=== PATIENT | female | born 1950 | race African-American/Black ===

== ENCOUNTER 2017-07-22 09:08 | Inpatient (IN) ==
[2017-07-22 10:23] LABS: Basophils # 0.1 10*3/uL (0.0-0.2); Basophils % 0.3 % (0.0-0.8); Eosinophils # 0.1 10*3/uL (0.0-0.87); Eosinophils % 0.6 % (0.00-10.9); Hematocrit 36.6 VOL% (35.7-47.0); Hemoglobin 12.5 GM/DL (12.0-16.0); Immature Granulocytes % 0.7 %; Lymphocytes # 2.3 10*3/uL (1.4-4.0); Lymphocytes % 15.8 % (21.3-54.2); Mean Corpuscular HGB Conc 34.2 GM/DL (32-36); Mean Corpuscular Hemoglobin 31 PG (27-34); Mean Corpuscular Volume 89.3 FL (87-102); Mean Platelet Volume 10.3 FL (9.6-12.0); Monocytes # 1.1 10*3/uL (0.11-0.8); Monocytes % 7.2 % (1.7-12.7); Neutrophils # 10.9 10*3/uL (1.4-7.4); Neutrophils % 75.4 % (38.7-73.9); Platelet Count 307 T/CUMM (130-400); Red Cell Distribution Width 12.4 % (9.3-17.3); White Blood Count 14.5 T/CUMM (4-12)
[2017-07-22 10:28] LABS: Apearance,Urine CLEAR (Clear); Bacteria,Urine Occasional /HPF (Few); Bilirubin,Urine Negative (Negative); Blood, Urine Negative (Negative); Glucose,Urine (UA) Negative (Negative); Ketones,Urine 5 mg/dL (Negative); Mucus,Urine Occasional /LPF (Occasional); Nitrite,Urine Negative (Negative); Protein,Urine 30 MG/DL; RBC,Urine 3 /HPF (0-4); Squamous Epithelial Cell,Urine Occasional /HPF (0-10); Urine Color Amber (Yellow); Urine Specific Gravity 1.021 (1.001-1.035); WBC,Urine 2 /HPF (0-6)
[2017-07-22 10:48] LABS: Albumin 3.5 G/DL (3.4-5.0); Bilirubin,Total 0.7 MG/DL (0.2-1.0); Calcium 9.4 MG/DL (8.5-10.1); Magnesium 2.3 MG/DL (1.8-2.4); Osmolality,Calculated 275.5 MOS/KG (273-304); Potassium 3.7 MMOL/L (3.5-5.1); Total Protein 7.7 G/DL (6.4-8.3)
--- NOTE | 2017-07-22 11:03 | CT Report ---
History left lower quadrant abdominal pain 100 cc Omnipaque 350 utilized. No focal defects seen in the liver, spleen, pancreas, adrenals, or right kidney. Tiny a 5 mm of fat density nodularity in the left kidney noted Atherosclerotic changes in the abdominal aorta. 5 mm periaortic nodes present. No larger than 1 cm nodes present. Bowel is unopacified. Pelvis: There are diverticuli in sigmoid colon with the inflammatory changes surrounding the sigmoid colon. The there are 2 loculated fluid collections adjacent to the sigmoid colon one of which is more superior measuring 3.3 cm with an air-fluid level and well-defined wall. The second is more inferiorly with a mildly more irregular, less well-defined wall measuring up to 3 x 4 cm containing fluid and tiny amount of gas. There are degenerative changes and mild spondylolisthesis in the lumbar spine Impression: 1. Sigmoid diverticulitis with 2 adjacent abscess collections described above 2. Tiny left renal angiomyolipoma The CT exam was performed using one or more of the following dose reduction techniques: Automated exposure control, adjustment of the mA and/or kV according to patient size, or use of iterative reconstruction technique. PROCEDURE INTERPRETED AT [facility] DEPARTMENT OF RADIOLOGY Final Report Signed by: Dr. Jeanie Morales
--- NOTE | 2017-07-22 11:34 | Emergency Department Note ---
Kayden Izquierdo Manpreet, am scribing for, and in the presence of, Scott Malik MD 10:07. Helena Izquierdo Phillip K, MD, personally performed the services described in this documentation, ascribed by Willi Monique in my presence, and it is both accurate and complete [id number] . Arrival - Arrival Chief Complaint: Abdominal / Flank Pain Stated Complaint: abd pain,urinary pain ED Nursing Triage Note: lower abd pain and pain with uriation onset x 1 week ago - pt states that she is taking keflex that was started on 07/16/17 Mode of Arrival: Ambulatory Limitations: No Limitations Source: Patient Time Seen by Provider: 07/22/17 09:53 - History of Present Illness HPI Narrative: Pt is a 66 y/o female who presents to the ED with CC of lower Abd pain and dysuria that began 07/14/17. Pt went to her PCP, Dr. Baljinder Donovan, who treated her for a UTI. Pt was Rx Keflex on July 15 which she has been taking. Pt states the Abd pain is intermittent and reports of increased frequency. Pt states the pain worsens at the start and end of her urination. Pt c/o nausea and fever last night with a temperature of 100.6 F, but denies vomiting. Pt's temperature during triage was 97.5 F. Pt has a PSHx of appendectomy and C- section, but still has her gallbladder. Pt's last colonoscopy was 20 years ago. No other pains/complaints reported to the ED. Onset (ago): hour(s) Consistency: constant Severity: moderate Date of Last Menstrual Period: hyster Allergies/Adverse Reactions: Allergies Allergy/AdvReac Type Severity Reaction Status Date / Time ciprofloxacin [From Cipro] AdvReac Hallucinati Verified 07/22/17 09:23 ng codeine AdvReac Hallucinati Verified 07/22/17 09:23 ng sulfamethoxazole AdvReac Hallucinati Verified 07/22/17 09:23 [From Bactrim] ng trimethoprim [From Bactrim] AdvReac Hallucinati Verified 07/22/17 09:23 ng Review of System - Review of System 12 point system: reviewed and no additional remarkable complaints except as stated - Review of System Constitutional: Present: chills, fever (Last night with Temperature of 100.6). Absent: diaphoresis Respiratory: Absent: cough, respiratory distress, wheezing Cardiovascular: Absent: chest pain, dyspnea on exertion Gastrointestinal: Present: abdominal pain, nausea. Absent: vomiting, diarrhea Genitourinary female: Present: dysuria, frequency Musculoskeletal: Present: back pain Neurological: Absent: headache, weakness, numbness, paresthesias Medical,Surgical,& Family Hx - Medical History Cardio: History of: Hypertension Endocrine: History of: Dyslipidemia - Social History Smoking Status: Never smoker Frequency of Alcohol Use: None Type of Drug Use: None Exam Vital Signs: Vital Signs Temperature 97.5 F L 07/22/17 09:23 Pulse Rate 95 H 07/22/17 09:23 Respiratory Rate 20 07/22/17 09:23 Blood Pressure 146/65 07/22/17 09:23 O2 Sat by Pulse Oximetry 98 07/22/17 09:23 - General General appearance: alert, in no apparent distress - Head Head exam: Present: atraumatic, normocephalic, normal inspection - Eye Eye exam: Present: normal appearance, PERRL, EOMI - ENT ENT exam: Present: normal exam, normal oropharynx, mucous membranes moist, TM's normal bilaterally - Neck Neck exam: Present: normal inspection, full ROM, trachea midline. Absent: tenderness - Chest Chest inspection: Present: normal inspection, symmetric chest wall rise. Absent : tenderness - Respiratory Respiratory exam: Present: normal lung sounds bilaterally. Absent: accessory muscle use, respiratory distress - Cardiovascular Cardiovascular exam: Present: regular rate, normal rhythm, normal heart sounds - Abdominal Exam Abdominal exam: Present: soft, tenderness (LLQ and Suprapubic tenderness), normal bowel sounds. Absent: distention, guarding, rebound, rigidity - Extremities Exam Extremities exam: Present: normal inspection, full ROM. Absent: tenderness - Back Exam Back exam: Present: normal inspection, full ROM. Absent: tenderness - Neurological Exam Neurological exam: Present: alert, oriented X3, CN II-XII intact, reflexes normal - Psychiatric Psychiatric exam: Present: normal affect, normal mood - Skin Skin exam: Present: warm, dry, intact, normal color. Absent: pallor Results - Labs CBC & BMP: 07/22/17 10:06 07/22/17 10:06 Lab Results: I have reviewed the patients labs Labs: Laboratory Tests 07/22/17 10:16 POC Creatinine 0.74 POC Estimated GFR (eGFR) > 60 Laboratory Tests 07/22/17 07/22/17 10:01 10:06 WBC 14.5 H RBC 4.10 Hgb 12.5 Hct 36.6 MCV 89.3 MCH 31 MCHC 34.2 RDW 12.4 Plt Count 307 MPV 10.3 Neut % (Auto) 75.4 H Lymph % (Auto) 15.8 L Mathews % (Auto) 7.2 Eos % (Auto) 0.6 Baso % (Auto) 0.3 Neut # (Auto) 10.9 H Lymph # (Auto) 2.3 Mathews # (Auto) 1.1 H Eos # (Auto) 0.1 Baso # (Auto) 0.1 Immature Gran % 0.7 Nucleated RBC % 0.0 Immature Gran # 0.10 Nucleated RBCs # 0.00 Immature Plt Fraction 0.0 Urine Color Elsi Urine Appearance Clear Urine pH 5.0 Ur Specific [place] 1.021 Urine Protein 30 Urine Glucose (UA) Negative Urine Ketones 5 Urine Blood Negative Urine Nitrate Negative Urine Bilirubin Negative Urine Urobilinogen 4.0 H Urine Leukocytes Negative Urine RBC 3 Urine WBC 2 Ur Squamous Epith Cells Occasional Urine Bacteria Occasional Urine Mucus Occasional Ur Culture Indicated? Not indicated Laboratory Tests 07/22/17 10:06 Sodium 139 Potassium 3.7 Chloride 102 Carbon Dioxide 28 Anion Gap 12.7 BUN 9 Creatinine 0.80 GFR Calculation 87 BUN/Creatinine Ratio 11.00 Glucose 107 H Calculated Osmolality 275.5 Calcium 9.4 Magnesium 2.3 Total Bilirubin 0.70 AST 23 ALT 18 Alkaline Phosphatase 99 Total Protein 7.7 Albumin 3.5 Globulin 4.2 H Albumin/Globulin Ratio 0.8 L Lipase 133.0 - Diagnostic Findings Procedure: CT Abdomen and Pelvis: report reviewed by me ("CT Abd/Pel w/ Con: 1. Sigmoid diverticulitis with 2 adjacent abscess collections described above. 2. Tiny left renal agniomyolipoma.") Disposition Clinical Impression: Diverticulitis, Diverticular disease of intestine with perforation and abscess Case discussed with: patient Disposition: Still a Patient Condition: Guarded Additional Instructions: Admit to the hospitalist and consult GI and surgery.
[2017-07-22] MEDS ORDERED: AMPICILLIN/SULBACTAM 3,000 MG in SODIUM CHLORIDE 0.9% 100 ML IV STA (11:36)
[2017-07-22] MEDS ORDERED: metroNIDAZOLE INJ 500 MG in PREMIX 1 EACH IV STA (11:36)
[2017-07-22] MEDS ORDERED: metroNIDAZOLE 500 MG/100 ML PREMIX IV ONE (11:51)
[2017-07-22] MEDS ORDERED: AMPICILLIN/SULBACTAM 3,000 MG VIAL ONE (11:51)
--- NOTE | 2017-07-22 12:44 | Hospitalist History & Physical ---
<Kathrin Michelda - Last Filed: 07/22/17 12:53> Assessment and Plan (1) Diverticulitis Status: Acute Assessment and plan: We will initiate hydration, empiric antibiotics, protein pump inhibitors, and promote bowel rest. We will consult gastroenterology to evaluate. In addition , we will consult surgery to evaluate for possible surgical intervention if warranted. Current Visit: Yes (2) Diverticular disease of intestine with perforation and abscess Status: Acute Assessment and plan: We will initiate hydration, empiric antibiotics, protein pump inhibitors, and promote bowel rest. We will consult gastroenterology to evaluate. In addition , we will consult surgery to evaluate for possible surgical intervention if warranted. Current Visit: Yes (3) Sepsis Status: Acute Assessment and plan: At the time of ED presentation, the patient's respirations were noted at 20, white blood cell count was noted at 14.5. CT abdomen and pelvis was remarkable for sigmoid diverticulitis with 2 adjacent abscess collections. The aforementioned findings solidifies the subsequent sepsis diagnosis. We will initiate the sepsis bundle per protocol. Blood cultures were not obtained at the time of ED presentation. We will obtain blood cultures and sent for analysis. Current Visit: Yes History of Present Illness Chief complaint: abdominal pain History of present illness: This is a 66-year-old female that presented to the ED at [facility] this morning for the evaluation of abdominal pain. Patient has a medical history significant for hypertension, hyperlipidemia, arthritis, and asthma. Patient has a surgical history significant for appendectomy, section, and hysterectomy. The patient reported the onset of symptoms 2 weeks prior to presentation. She initially attempted to manage the symptoms at home however her symptoms became severe. She presented to her primary care physician Dr. Baljinder Ruvalcaba's office on July 15, 2017 where she was diagnosed with a urinary tract infection and prescribed Keflex. The patient reported intermittent abdominal pain initially that she attributed to her urinary tract infection. The symptoms subsided briefly however, the patient started experiencing intermittent abdominal pain. The patient reported that she started to experience severe pain at the initiation and in of urination. The patient reported that she was febrile on last night with a temperature reported at 100.6 however denies vomiting. In addition, she reported that her abdomen became extremely warm on last night which prompted her to take her temperature. Her symptoms became very severe on this morning prompting her to present to the ED for further evaluation. The patient was assessed at the time of ED presentation. The patient was noted to be febrile with a temperature of 97.5. Labs were obtained which were remarkable for white blood cell count of 14.5, glucose 107, and globulin 4.2. Urinalysis was remarkable for urine urobilinogen 4.0, urine WBC 2, and occasional squamous epithelial cells bacteria and mucus was noted. CT abdomen and pelvis with contrast was significant for sigmoid diverticulitis with 2 adjacent abscess collections and the presence of a left renal angioma myolipoma. After brief discussion with both Dr. Malik and Dr. Blackwood, the patient will be admitted to the hospitalist group for continuation of care. A gastroenterology and surgery consultation has been requested to evaluate and assist during the clinical encounter. Home medications have been reviewed and reconciled. CODE STATUS discussed; patient is a FULL CODE. Upon review of the patient's medical record, the patient meets the sepsis criteria. At the time of ED presentation, white blood cell count was noted at 14.5, respirations were noted at 20, and CT abdomen and pelvis was significant for sigmoid diverticulitis with the presence of 2 adjacent abscesses. We will initiate the sepsis bundle per protocol. Home Medications Medication Instructions Recorded Confirmed Type Methocarbamol Tab [Robaxin Tab] 500 mg PO TID PRN 07/22/17 07/22/17 History [place]-3 Fatty Acids [Fish Oil 1,000 mg PO TID 07/22/17 07/22/17 History Concentrate] hydroCHLOROthiazide 12.5 mg PO DAILY 07/22/17 07/22/17 History [Hydrochlorothiazide] Allergies Allergy/AdvReac Type Severity Reaction Status Date / Time ciprofloxacin [From Cipro] AdvReac Hallucinati Verified 07/22/17 09:23 ng codeine AdvReac Hallucinati Verified 07/22/17 09:23 ng sulfamethoxazole AdvReac Hallucinati Verified 07/22/17 09:23 [From Bactrim] ng trimethoprim [From Bactrim] AdvReac Hallucinati Verified 07/22/17 09:23 ng Medical,Surgical,& Family Hx - Medical History Cardio: History of: Hypertension Endocrine: History of: Dyslipidemia - Surgical History Abdominal Surgeries: Surgical HX of: Appendectomy Reproductive Surgeries: Surgical HX of;: Section, Hysterectomy - Family History Family History: Reports;: Family Diabetes, Family Heart Disease, Family Hypertension, Family Stroke - Social History Smoking Status: Never smoker Have you smoked in the last 12 months: No Frequency of Alcohol Use: None Type of Drug Use: None Marital Status: Single Lives With:: Alone Functional capacity: independent ambulation 12 point system: reviewed and no additional remarkable complaints except as stated Exam - Constitutional Vitals: Period Temp Pulse Resp BP Sys/Gunderson Pulse Ox Last 24 Hr 97.5 F-97.5 F 82-95 18-20 145-173/65-89 98-100 General appearance: normal weight, no acute distress - Head Head exam: Present: normal inspection, normocephalic - Eye Eye exam: Present: EOMI, conjunctival injection Pupils: Present: HAROON, normal accommodation - ENT ENT exam: Present: normal exam, normal external ear exam, normal oropharynx - Neck Neck exam: Present: normal inspection. Absent: lymphadenopathy, meningismus, tenderness, thyromegaly - Respiratory Respiratory exam: Present: clear to auscultation bilaterally. Absent: rales, rhonchi, stridor, wheezes - Cardiovascular Cardiovascular exam: Present: regular rate and rhythm. Absent: carotid bruit, diastolic murmur, gallop, JVD - GI/Abdominal GI/Abdominal exam: Present: normal bowel sounds, tenderness (Upon deep palpation ; left lower quadrant suprapubic tenderness) - Extremities Exam Extremities exam: Present: normal inspection, normal capillary refill, full ROM. Absent: edema - Back Exam Back exam: Present: normal inspection - Neurological Exam Neurological exam: Present: alert, oriented X3, CN II-XII intact - Psychiatric Psychiatric exam: Present: normal affect, normal mood - Skin Skin exam: Present: normal color, warm, dry Results - Labs CBC & BMP: 07/22/17 10:06 07/22/17 10:06 Lab Results: I have reviewed the past 24 hour labs Sepsis - Sepsis Classification of Sepsis: Sepsis Possible / Suspected infection from: Diverticular abscess - Physical Exam Physical Exam: At the time of ED presentation, the patient's respirations were noted at 20, white blood cell count was noted at 14.5. CT abdomen and pelvis was remarkable for sigmoid diverticulitis with 2 adjacent abscess collections. The aforementioned findings solidifies the subsequent sepsis diagnosis. We will initiate the sepsis bundle per protocol. - Physical Exam Respiratory exam: clear to auscultation bilaterally Capillary Refill: Less Than 3 Seconds Peripheral pulses: Radial (L): 2+, Radial (R): 2+, Dorsalis Pedis (L) PM: 2+, Dorsalis Pedis (R) PM: 2+, Posterior Tibialis (L): 2+, Posterior Tibialis (R): 2 + Cardiovascular exam: regular rate and rhythm Skin exam: normal color <Shanda Blackwoodnathan - Last Filed: 07/22/17 13:59> History of Present Illness History of present illness: Ms. Arambula is a 66 year old female who presented to the emergency department today with complaints of abdominal pain. Evaluation in the emergency room included a CT scan of the abdomen demonstrating sigmoid diverticulitis with a mansoor-colonic abscess and clinical evaluation compatible with sepsis. She is being admitted to the hospital for management thereof. She has been placed on bowel rest, begun on intravenous normal saline, and begun on intravenous antibiotics. Gastroenterology and general surgery have been consulted. She is presently comfortable with only minimal abdominal discomfort. I have interviewed the patient, examined the patient, and reviewed all of the available laboratory tests and x-ray results. I agree with the assessment and plans of nurse practitioner Anand. Exam - Constitutional Vitals: Period Temp Pulse Resp BP Sys/Gunderson Pulse Ox Last 24 Hr 97.5 F-97.5 F 82-95 18-20 130-173/65-89 98-100 Results - Labs CBC & BMP: 07/22/17 10:06 07/22/17 10:06
[2017-07-22] MEDS ORDERED: hydrALAZINE 20 MG/1 ML VIAL IV PRN (12:49)
[2017-07-22] MEDS ORDERED: ONDANSETRON 4 MG/2 ML VIAL IV PRN (13:06)
[2017-07-22] MEDS: AMPICILLIN/SULBACTAM 3,000 MG in SODIUM CHLORIDE 0.9% 100 ML IV SCH ×2 (13:48→22:48)
[2017-07-22] MEDS: SODIUM CHLORIDE 0.9% 1,000 ML IV SCH (13:48)
[2017-07-22 13:53] LABS: Risk Ratio 3.03; VLDL CHOLESTEROL 16.2 MG/DL
[2017-07-22] MEDS: ALBUTEROL 2.5 MG/3 ML NEB RESP TX SCH ×4 (14:09→23:42)
--- NOTE | 2017-07-22 14:50 | Gastrointestinal Consult Note ---
<Patti Christiansen - Last Filed: 07/22/17 14:44> Assessment and Plan (1) Diverticulitis Status: Acute Assessment and plan: [id number] history of left lower quadrant abdominal pain with fever, with findings on CT of abdomen of rectosigmoid diverticulitis with abscess findings as noted below 2. Leukocytosis. Currently on Flagyl and Unasyn IV. Clear liquid diet. Plan an addendum to follow Dr. Barton. Current Visit: Yes History of Present Illness Chief complaint: Diverticulitis History of present illness: Ms. Arambula is a 66 year old female who was admitted to the hospital today with 3 week history of abdominal pain. Patient is retired nurse. She states that approximately 3 weeks ago she had an onset of left lower quadrant abdominal pain. She states the pain did not seem to be associated with any other known factors. The pain was located in her left lower quadrant primarily and she did have some occasional nausea but no vomiting with this. Patient also states that she has had an intermittent episodes of nocturnal fever of 100.0. She is followed by Dr. Ruvalcaba and saw him in clinic approximately a week ago and was diagnosed with a urinary tract infection and given a prescription for Keflex. Patient states that several days later her abdominal pain did not improve as she had expected. She then came to the emergency room at that time for further evaluation. Upon admission, patient was found to have leukocytosis with WBCs at 14,000. She had a CT of the abdomen with IV contrast which showed sigmoid diverticulitis with 2 adjacent abscess collections with one measuring 2.3 cm with well-defined wall and a second at 3 x 4 cm with a less well-defined wall. Patient states that she has never had diverticulitis in the past. She denies any recent weight loss other than the last few days from the pain. She has had colonoscopy done in the past however states this was several years ago at the endoscopic center by Dr. Steele and states that she does not recall the findings at that time other than being told she had possible adhesions from her C-sections 3, appendectomy and abdominal hysterectomy. She does not recall any changes in her bowel movements as well as denies any melena or hematochezia. Home Medications Medication Instructions Recorded Confirmed Type Methocarbamol Tab [Robaxin Tab] 500 mg PO TID PRN 07/22/17 07/22/17 History [place]-3 Fatty Acids [Fish Oil 1,000 mg PO TID 07/22/17 07/22/17 History Concentrate] hydroCHLOROthiazide 12.5 mg PO DAILY 07/22/17 07/22/17 History [Hydrochlorothiazide] Allergies Allergy/AdvReac Type Severity Reaction Status Date / Time ciprofloxacin [From Cipro] AdvReac Hallucinati Verified 07/22/17 09:23 ng codeine AdvReac Hallucinati Verified 07/22/17 09:23 ng sulfamethoxazole AdvReac Hallucinati Verified 07/22/17 09:23 [From Bactrim] ng trimethoprim [From Bactrim] AdvReac Hallucinati Verified 07/22/17 09:23 ng Medical,Surgical,& Family Hx - Medical History Cardio: History of: Hypertension Endocrine: History of: Dyslipidemia Genitourinary: History of: Kidney Stones - Surgical History Abdominal Surgeries: Surgical HX of: Appendectomy Reproductive Surgeries: Surgical HX of;: Section, Hysterectomy - Family History Family History: Reports;: Family Diabetes, Family Heart Disease, Family Hypertension, Family Stroke Denies;: Family Anesthesia Reaction, Family Cancer, Family Hematology, Family Psychiatric Problems, Additional Family History - Social History Smoking Status: Never smoker Frequency of Alcohol Use: None Type of Drug Use: None 12 point system: reviewed and no additional remarkable complaints except as stated - Constitutional Constitutional: Present: as per HPI - EENT Eyes: Present: as per HPI Ears: Present: as per HPI Nose, mouth and throat: Present: as per HPI - Cardiovascular Cardiovascular: Present: as per HPI - Respiratory Respiratory: Present: as per HPI - Gastrointestinal Gastrointestinal: Present: as per HPI, abdominal pain - Genitourinary Genitourinary: Present: as per HPI - Musculoskeletal Musculoskeletal: Present: as per HPI - Neurological Neurological: Present: as per HPI - Psychiatric Psychiatric: Present: as per HPI - Endocrine Endocrine: Present: as per HPI - Hematologic/Lymphatic Hematologic/Lymphatic: Present: as per HPI Exam - Constitutional Vitals: Period Temp Pulse Resp BP Sys/Gunderson Pulse Ox Last 24 Hr 97.5 F-97.5 F 61-95 18-20 130-173/65-89 98-100 General appearance: normal weight, no acute distress - Head Head exam: Present: normal inspection, normocephalic - Eye Eye exam: Present: other (Lids and conjunctive are unremarkable). Absent: scleral icterus - ENT ENT exam: Present: normal exam, normal oropharynx - Neck Neck exam: Present: normal inspection - Respiratory Respiratory exam: Present: clear to auscultation bilaterally. Absent: rales, rhonchi, wheezes - Cardiovascular Cardiovascular exam: Present: regular rate and rhythm. Absent: diastolic murmur , JVD, systolic murmur - GI/Abdominal GI/Abdominal exam: Present: normal bowel sounds, tenderness (Left lower plug), soft. Absent: ascites, distended, mass, organomegaly - Extremities Exam Extremities exam: Present: normal inspection, full ROM - Back Exam Back exam: Present: normal inspection - Neurological Exam Neurological exam: Present: alert, oriented X3 - Psychiatric Psychiatric exam: Present: normal affect, normal mood - Skin Skin exam: Present: normal color, warm, dry Results - Labs CBC & BMP: 07/22/17 10:06 07/22/17 10:06 Lab Results: I have reviewed the past 24 hour labs <Mauri Barton - Last Filed: 07/22/17 17:15> History of Present Illness History of present illness: Ms. Arambula is a 66 year old female Exam - Constitutional Vitals: Period Temp Pulse Resp BP Sys/Gunderson Pulse Ox Last 24 Hr 97.5 F-98.6 F 61-95 18-20 130-173/65-89 93-100 Results - Labs CBC & BMP: 07/22/17 10:06 07/22/17 10:06
--- NOTE | 2017-07-22 15:20 | General Surgery Consult Note ---
Assessment and Plan (1) Diverticular disease of intestine with perforation and abscess Status: Acute Assessment and plan: Impression: Diverticulitis with abscess Plan: I reviewed the CT images and report. She has evidence of diverticulitis with 2 small abscesses. She is nontoxic. Her abdominal exam is not very impressive. Lab work noted. I discussed options with the patient including conservative treatment with antibiotics alone versus in combination with percutaneous drainage. She does not have an acute abdomen or any indication for exploration at this time. Patient would like to proceed with antibiotics alone and if she does not improve or her condition worsens she would l then consider percutaneous drainage by interventional radiology. I think that is a very reasonable plan. We will continue to follow. Okay for clear liquids today and probably begin advancing diet tomorrow if she continues to do well. Current Visit: Yes History of Present Illness Chief complaint: Abdominal pain History of present illness: Ms. Arambula is a 66 year old female with a one-week history of abdominal pain in the suprapubic and left lower quadrant. She decided to come to the hospital because she was not getting any better. The decision to consult surgery was made upon admission. Patient describes some previous nausea but no vomiting. She has not had any abnormal stools. She denies diarrhea. She has not had any fever. Home Medications Medication Instructions Recorded Confirmed Type Methocarbamol Tab [Robaxin Tab] 500 mg PO TID PRN 07/22/17 07/22/17 History Mart-3 Fatty Acids [Fish Oil 1,000 mg PO TID 07/22/17 07/22/17 History Concentrate] hydroCHLOROthiazide 12.5 mg PO DAILY 07/22/17 07/22/17 History [Hydrochlorothiazide] Allergies Allergy/AdvReac Type Severity Reaction Status Date / Time ciprofloxacin [From Cipro] AdvReac Hallucinati Verified 07/22/17 09:23 ng codeine AdvReac Hallucinati Verified 07/22/17 09:23 ng sulfamethoxazole AdvReac Hallucinati Verified 07/22/17 09:23 [From Bactrim] ng trimethoprim [From Bactrim] AdvReac Hallucinati Verified 07/22/17 09:23 ng Medical,Surgical,& Family Hx - Medical History Cardio: History of: Hypertension Endocrine: History of: Dyslipidemia Genitourinary: History of: Kidney Stones - Surgical History Abdominal Surgeries: Surgical HX of: Appendectomy Reproductive Surgeries: Surgical HX of;: Section, Hysterectomy - Family History Family History: Reports;: Family Diabetes, Family Heart Disease, Family Hypertension, Family Stroke Denies;: Family Anesthesia Reaction, Family Cancer, Family Hematology, Family Psychiatric Problems, Additional Family History - Social History Smoking Status: Never smoker Frequency of Alcohol Use: None Type of Drug Use: None 12 point system: reviewed and no additional remarkable complaints except as stated Exam - Constitutional Vitals: Period Temp Pulse Resp BP Sys/Gunderson Pulse Ox Last 24 Hr 97.5 F-97.5 F 61-95 18-20 130-173/65-89 98-100 General appearance: no acute distress - ENT Mouth exam: Present: normal external inspection - Neck Neck exam: Present: normal inspection - Respiratory Respiratory exam: Present: clear to auscultation bilaterally - Cardiovascular Cardiovascular exam: Present: RRR - GI/Abdominal GI/Abdominal exam: Present: soft (Nondistended, there is very minimal tenderness to palpation appreciated in the suprapubic and left lower quadrant. She does not have any peritoneal signs.) - Extremities Exam Extremities exam: Present: normal inspection - Neurological Exam Neurological exam: Present: alert, oriented X3 Speech: Present: normal - Skin Skin exam: Present: normal color Results - Labs CBC & BMP: 07/22/17 10:06 07/22/17 10:06 Lab Results: I have reviewed the past 24 hour labs
[2017-07-22] MEDS: metroNIDAZOLE INJ 500 MG in PREMIX 1 EACH IV SCH (20:24)
[2017-07-23] MEDS: metroNIDAZOLE INJ 500 MG in PREMIX 1 EACH IV SCH ×4 (02:28→20:20)
[2017-07-23] MEDS: ALBUTEROL 2.5 MG/3 ML NEB RESP TX SCH ×6 (03:59→23:55)
[2017-07-23] MEDS: AMPICILLIN/SULBACTAM 3,000 MG in SODIUM CHLORIDE 0.9% 100 ML IV SCH ×3 (04:59→22:05)
[2017-07-23 05:35] LABS: Basophils % 0.3 % (0.0-0.8); Eosinophils # 0.1 10*3/uL (0.0-0.87); Eosinophils % 0.8 % (0.00-10.9); Hematocrit 29.8 VOL% (35.7-47.0); Hemoglobin 9.9 GM/DL (12.0-16.0); Immature Granulocytes % 0.7 %; Immature Granulocytes Absolute 0.07 #; Lymphocytes # 1.6 10*3/uL (1.4-4.0); Lymphocytes % 15.9 % (21.3-54.2); Mean Corpuscular HGB Conc 33.2 GM/DL (32-36); Mean Corpuscular Hemoglobin 30 PG (27-34); Mean Platelet Volume 10.9 FL (9.6-12.0); Monocytes # 0.9 10*3/uL (0.11-0.8); Monocytes % 8.8 % (1.7-12.7); NRBC # 0.02 10*3/uL; Neutrophils # 7.5 10*3/uL (1.4-7.4); Neutrophils % 73.5 % (38.7-73.9); Platelet Count 266 T/CUMM (130-400); Red Blood Count 3.31 MC/CUMM (3.8-5.5); Red Cell Distribution Width 12.5 % (9.3-17.3); White Blood Count 10.2 T/CUMM (4-12)
[2017-07-23 06:12] LABS: Albumin 2.7 G/DL (3.4-5.0); Calcium 8.5 MG/DL (8.5-10.1); Osmolality,Calculated 280.3 MOS/KG (273-304); Potassium 3.6 MMOL/L (3.5-5.1); Total Protein 6.3 G/DL (6.4-8.3)
[2017-07-23] MEDS: SODIUM CHLORIDE 0.9% 1,000 ML IV SCH (07:15)
--- NOTE | 2017-07-23 09:51 | General Surgery Progress Note ---
Assessment and Plan (1) Diverticular disease of intestine with perforation and abscess Status: Acute Assessment and plan: 07/23/2017: Metronidazole and Unasyn day #2. Patient feels much improved, afebrile, resolved leukocytosis and is tolerating clear liquids. She request to advance slowly we will try full liquids today continue IV antibiotics. Repeat CBC in a.m. if patient continues to improve on IV antibiotics and tolerates diet advanced without difficulty, I we are hopeful she will be able to transition to oral antibiotics by Wednesday. 07/22/2017: "She has evidence of diverticulitis with 2 small abscesses. She is nontoxic. Her abdominal exam is not very impressive. Lab work noted. I discussed options with the patient including conservative treatment with antibiotics alone versus in combination with percutaneous drainage. She does not have an acute abdomen or any indication for exploration at this time. Patient would like to proceed with antibiotics alone and if she does not improve or her condition worsens she would l then consider percutaneous drainage by interventional radiology. I think that is a very reasonable plan. We will continue to follow. Okay for clear liquids today and probably begin advancing diet tomorrow if she continues to do well." Dictated by Dr. Sanchez. Current Visit: Yes Subjective Patient reports: Present: feels better, tolerating liquids well, afebrile Exam - Constitutional Vitals: Period Temp Pulse Resp BP Sys/Gunderson Pulse Ox Last 24 Hr 97.5 F-99.7 F 61-115 18-20 115-173/56-89 93-100 General appearance: no acute distress - Eye Eye exam: Absent: scleral icterus - GI/Abdominal GI/Abdominal exam: Present: normal bowel sounds, soft, other (decreased abdominal tenderness in suprapubic region and LLQ. ). Absent: firm, guarding - Neurological Exam Neurological exam: Present: alert, oriented X3 Results - Labs CBC & BMP: 07/23/17 04:56 07/23/17 04:56
--- NOTE | 2017-07-23 10:20 | Hospitalist Progress Note ---
Assessment and Plan - Time spent with patient Time spent with patient: Greater than 30 minutes (1) Diverticulitis Status: Acute Current Visit: Yes (2) Diverticular disease of intestine with perforation and abscess Status: Acute Current Visit: Yes (3) Sepsis Status: Acute Assessment and plan: Continue empiric antibiotics with Flagyl and Zosyn. Monitor leukocytosis with CBC Advance diet per surgery recommendations. Change to oral antibiotics once oral intake is reestablished. Continue gentle IV fluid hydration until oral intake is reestablished. If she continues to stay pain free and tolerates oral feeds well, should be able to go in 24-48 hrs DVT prophylaxis - Lovenox. Current Visit: Yes Hospitalist: Subjective Interval history: Patient was admitted on being managed for acute diverticulitis. On day 2 of IV Zosyn and Flagyl with some improvement today. Tolerating clear liquid diet, plan is to transition to full liuid and soft. Leukocytosis has improved. No fever. Pain free at the time of my rounds Appreciate surgery and gastroenterology input. Exam - Constitutional Vitals: Period Temp Pulse Resp BP Sys/Gunderson Pulse Ox Last 24 Hr 97.5 F-99.7 F 61-115 18-20 115-173/56-89 93-100 Exam: General appearance: normal weight, no acute distress - Head Head exam: Present: normal inspection, normocephalic - Eye Eye exam: Present: EOMI, conjunctival injection Pupils: Present: HAROON, normal accommodation - ENT ENT exam: Present: normal exam, normal external ear exam, normal oropharynx - Neck Neck exam: Present: normal inspection. Absent: lymphadenopathy, meningismus, tenderness, thyromegaly - Respiratory Respiratory exam: Present: clear to auscultation bilaterally. Absent: rales, rhonchi, stridor, wheezes - Cardiovascular Cardiovascular exam: Present: regular rate and rhythm. Absent: carotid bruit, diastolic murmur, gallop, JVD - GI/Abdominal GI/Abdominal exam: Present: normal bowel sounds, tenderness (Upon deep palpation ; left lower quadrant suprapubic tenderness) - Extremities Exam Extremities exam: Present: normal inspection, normal capillary refill, full ROM. Absent: edema - Back Exam Back exam: Present: normal inspection - Neurological Exam Neurological exam: Present: alert, oriented X3, CN II-XII intact - Psychiatric Psychiatric exam: Present: normal affect, normal mood - Skin Skin exam: Present: normal color, warm, dry Results - Labs CBC & BMP: 07/23/17 04:56 07/23/17 04:56 Lab Results: I have reviewed the past 24 hour labs
--- NOTE | 2017-07-23 10:24 | Gastrointestinal Progress Note ---
<Patti Christiansen - Last Filed: 07/23/17 10:22> Assessment and Plan (1) Diverticulitis Status: Acute Assessment and plan: 07/23-left lower quadrant pain improved, low-grade fever this morning. WBCs down to 10,000. Tolerating diet present. Continue to monitor as well as continue IV antibiotics. Plan an addendum to follow Dr. Barton. [id number] history of left lower quadrant abdominal pain with fever, with findings on CT of abdomen of rectosigmoid diverticulitis with abscess findings as noted below 2. Leukocytosis. Currently on Flagyl and Unasyn IV. Clear liquid diet. Plan an addendum to follow Dr. Barton. Current Visit: Yes Gastroenterology - PN: Subj Interval history: CC: Diverticulitis Patient is seen, awake and alert with family at bedside. States that she had an uneventful night. She states that her pain is improved today she did have a good bowel movement this morning. She denies any nausea or vomiting. She is ran low-grade fever up to 99.7 this morning however is afebrile this time. WBCs are down to normal limits at 10,000. Abdomen is soft, improved tenderness to left lower quadrant. She is tolerating her diet this is been advanced to full liquids this morning. ROS: Denies shortness breath or chest pain Exam (Progress Note) - Constitutional Vitals: Period Temp Pulse Resp BP Sys/Gunderson Pulse Ox Last 24 Hr 97.5 F-99.7 F 61-115 18-20 115-173/56-89 93-100 General appearance: normal weight, no acute distress - Head Head exam: Present: normal inspection, normocephalic - Eye Eye exam: Present: other (Lids and judgment are unremarkable). Absent: scleral icterus - ENT ENT exam: Present: normal exam, normal oropharynx - Neck Neck exam: Present: normal inspection - Respiratory Respiratory exam: Present: clear to auscultation bilaterally. Absent: rales, rhonchi, wheezes - Cardiovascular Cardiovascular exam: Present: regular rate and rhythm. Absent: diastolic murmur , JVD, systolic murmur - GI/Abdominal GI/Abdominal exam: Present: normal bowel sounds, tenderness (Left lower quadrant , improved), soft. Absent: ascites, distended, mass, organomegaly - Extremities Exam Extremities exam: Present: normal inspection, full ROM - Back Exam Back exam: Present: normal inspection - Neurological Exam Neurological exam: Present: alert, oriented X3 - Psychiatric Psychiatric exam: Present: normal affect, normal mood - Skin Skin exam: Present: normal color, warm, dry Results - Labs CBC & BMP: 07/23/17 04:56 07/23/17 04:56 Lab Results: I have reviewed the past 24 hour labs <Mauri Barton - Last Filed: 07/23/17 14:35> Exam (Progress Note) - Constitutional Vitals: Period Temp Pulse Resp BP Sys/Gunderson Pulse Ox Last 24 Hr 97.8 F-99.7 F 63-115 18-20 115-168/56-84 93-100 Results - Labs CBC & BMP: 07/23/17 04:56 07/23/17 04:56
[2017-07-24] MEDS: SODIUM CHLORIDE 0.9% 1,000 ML IV SCH ×2 (00:51→12:35)
[2017-07-24] MEDS: metroNIDAZOLE INJ 500 MG in PREMIX 1 EACH IV SCH ×2 (01:48→08:56)
[2017-07-24] MEDS: ALBUTEROL 2.5 MG/3 ML NEB RESP TX SCH ×5 (03:45→21:38)
[2017-07-24] MEDS: AMPICILLIN/SULBACTAM 3,000 MG in SODIUM CHLORIDE 0.9% 100 ML IV SCH (05:30)
[2017-07-24 06:13] LABS: Basophils % 0.4 % (0.0-0.8); Eosinophils # 0.1 10*3/uL (0.0-0.87); Eosinophils % 1.5 % (0.00-10.9); Hematocrit 26.9 VOL% (35.7-47.0); Immature Granulocytes % 0.6 %; Immature Granulocytes Absolute 0.06 #; Lymphocytes # 2.2 10*3/uL (1.4-4.0); Lymphocytes % 22.4 % (21.3-54.2); Mean Corpuscular HGB Conc 33.5 GM/DL (32-36); Mean Corpuscular Hemoglobin 30 PG (27-34); Mean Corpuscular Volume 89.7 FL (87-102); Mean Platelet Volume 10.8 FL (9.6-12.0); Monocytes # 0.9 10*3/uL (0.11-0.8); Monocytes % 8.8 % (1.7-12.7); Neutrophils # 6.4 10*3/uL (1.4-7.4); Neutrophils % 66.3 % (38.7-73.9); Platelet Count 235 T/CUMM (130-400); Red Cell Distribution Width 12.4 % (9.3-17.3); White Blood Count 9.7 T/CUMM (4-12)
--- NOTE | 2017-07-24 11:48 | Hospitalist Progress Note ---
Assessment and Plan - Time spent with patient Time spent with patient: Greater than 30 minutes (1) Diverticulitis Status: Acute Current Visit: Yes (2) Diverticular disease of intestine with perforation and abscess Status: Acute Current Visit: Yes (3) Sepsis Status: Acute Assessment and plan: Continue antibiotics with Flagyl and Zosyn. Monitor CBC Change to oral antibiotics. Discontinue IV fluid hydration since she is back on oral. If she continues to be stable, should be able to go in 24-48 hrs DVT prophylaxis - Lovenox. Current Visit: Yes Hospitalist: Subjective Interval history: Being managed for acute diverticulitis, clinically improving. Tolerating oral feeds so far. No fever. Cultures are negative. No leukocytosis. Exam - Constitutional Vitals: Period Temp Pulse Resp BP Sys/Gunderson Pulse Ox Last 24 Hr 96.7 F-99.9 F 63-91 16-22 117-142/60-92 96-100 Exam: General appearance: normal weight, no acute distress - Head Head exam: Present: normal inspection, normocephalic - Eye Eye exam: Present: EOMI, conjunctival injection Pupils: Present: HAROON, normal accommodation - ENT ENT exam: Present: normal exam, normal external ear exam, normal oropharynx - Neck Neck exam: Present: normal inspection. Absent: lymphadenopathy, meningismus, tenderness, thyromegaly - Respiratory Respiratory exam: Present: clear to auscultation bilaterally. Absent: rales, rhonchi, stridor, wheezes - Cardiovascular Cardiovascular exam: Present: regular rate and rhythm. Absent: carotid bruit, diastolic murmur, gallop, JVD - GI/Abdominal GI/Abdominal exam: Present: normal bowel sounds, tenderness (Upon deep palpation ; left lower quadrant suprapubic tenderness) - Extremities Exam Extremities exam: Present: normal inspection, normal capillary refill, full ROM. Absent: edema - Back Exam Back exam: Present: normal inspection - Neurological Exam Neurological exam: Present: alert, oriented X3, CN II-XII intact - Psychiatric Psychiatric exam: Present: normal affect, normal mood - Skin Skin exam: Present: normal color, warm, dry Results - Labs CBC & BMP: 07/24/17 05:20 07/23/17 04:56 Lab Results: I have reviewed the past 24 hour labs
[2017-07-24] MEDS: AMOXICILLIN/CLAV 875 MG TABLET PO SCH (13:36)
[2017-07-24] MEDS: metroNIDAZOLE 500 MG TABLET PO SCH ×2 (16:28→21:51)
--- NOTE | 2017-07-24 17:57 | General Surgery Progress Note ---
Assessment and Plan (1) Diverticular disease of intestine with perforation and abscess Status: Acute Assessment and plan: This patient was admitted with complicated diverticulitis with 2 pericolic abscesses. She is being treated with antibiotics alone. Overall she is doing better today and really has no pain. She is afebrile and her white blood cell count is normal. We will transition to oral antibiotics and put her on a low residue diet. Potential discharge home tomorrow if doing well. Current Visit: Yes Subjective Patient reports: Present: no new complaints, feels better, pain is less, tolerating a regular diet, flatus, bowel movement, afebrile. Absent: blood in stool, nausea, vomiting Exam - Constitutional Vitals: Period Temp Pulse Resp BP Sys/Gunderson Pulse Ox Last 24 Hr 96.7 F-99.4 F 64-91 16-22 136-157/60-92 95-99 General appearance: normal weight, no acute distress - Head Head exam: Present: normal inspection, normocephalic - Eye Eye exam: Present: EOMI. Absent: scleral icterus Pupils: Present: HAROON - ENT ENT exam: Present: normal exam Mouth exam: Present: normal external inspection, normal voice - Neck Neck exam: Present: normal inspection, trachea midline - Respiratory Respiratory exam: Present: clear to auscultation bilaterally. Absent: accessory muscle use, chest wall tenderness - Cardiovascular Cardiovascular exam: Present: RRR. Absent: systolic murmur, tachycardia - GI/Abdominal GI/Abdominal exam: Present: normal bowel sounds, soft. Absent: tenderness, rebound - Extremities Exam Extremities exam: Present: normal inspection, normal capillary refill - Back Exam Back exam: Present: normal inspection - Neurological Exam Neurological exam: Present: alert, oriented X3 Speech: Present: normal - Skin Skin exam: Present: normal color, warm Results - Labs CBC & BMP: 07/24/17 05:20 07/23/17 04:56 - Diagnostic Findings Procedure: CT Abdomen and Pelvis: image reviewed by me, report reviewed by me
[2017-07-25] MEDS: AMOXICILLIN/CLAV 875 MG TABLET PO SCH ×2 (00:30→11:30)
[2017-07-25] MEDS: ALBUTEROL 2.5 MG/3 ML NEB RESP TX SCH ×4 (00:30→10:38)
[2017-07-25] MEDS: metroNIDAZOLE 500 MG TABLET PO SCH (05:01)
[2017-07-25 08:47] VITALS: BP 157/70
--- NOTE | 2017-07-25 09:26 | Gastrointestinal Progress Note ---
Assessment and Plan - Time spent with patient Time spent with patient: Greater than 30 minutes (1) Diverticulitis Status: Acute Current Visit: Yes (2) Other specified counseling Status: Acute Current Visit: Yes Exam (Progress Note) - Constitutional Vitals: Period Temp Pulse Resp BP Sys/Gunderson Pulse Ox Last 24 Hr 97.5 F-99.5 F 64-90 16-21 141-157/68-85 95-99 Results - Labs CBC & BMP: 07/24/17 05:20 07/23/17 04:56 Specialty Discharge - Follow Up or Referrals Follow up with: Yan Thompson MD [Physician] - (Follow up with Dr. Barton. Call [phone] to schedule follow up appointment.) Stalin Ngo MD [Physician] - Note Addendum: PLEASE NOTE -- automatic citation of patient information is unavoidable in this electronic note. I have made a reasonable effort to review the information cited , but it is not a part of my evaluation, impression, or recommendation unless specifically discussed in the dictated text that follows. As well, voice recognition software was used in the creation of this clinical note. Reasonable effort was made to identify and correct gross errors. Despite proofreading, errors in licensed nuclear operator may be present, including nonsense verbiage at times. If you encounter such an error, please contact me at [phone] for discussion and correction. -- Donna Chief complaint: diverticulitis Subjective: the patient is a 66-year-old female seen for follow-up of diverticulitis. She has been successfully converted to oral antibiotic. She reports feeling much better with no abdominal pain. She is tolerating an oral diet. She reports one bowel movement yesterday without blood. Leukocytosis is improving. Gen. surgery is following and is comfortable discharging today. Medications: albuterol, Augmentin, hydralazine, Flagyl, Zofran Review of Symptoms: 12 point review of symptoms was negative except as noted above Physical examination: Vital Signs: Current vital signs reviewed. General Appearance: well-appearing. Not acutely ill. Head: Normocephalic. Currently undergoing a nebulizer treatment Eyes: no scleral icterus. No scleral injection. No conjunctival pallor. Oral Cavity: Odor of breath was normal. No drooling was observed. Lips showed no abnormalities. Lungs: Respiration rhythm and depth was normal. Cardiovascular: Heart rate and rhythm were normal. Abdomen: abdomen was not distended. Abdominal auscultation revealed no abnormalities. Ascites was not discovered. Abdominal palpation revealed no tenderness and no hepatosplenomegaly. Musculoskeletal System: musculoskeletal system was grossly normal. Neurological: level of consciousness was normal. Speech was normal. No coordination/cerebellum abnormalities were noted. Skin: Gen. appearance was normal. Color and pigmentation were normal. No skin lesions were appreciated. Laboratory: no new laboratories ordered today Radiology: no new radiology today Impressions: #1. Diverticulitis -- the patient is improving with antibiotic therapy and has been successfully converted to oral medication. This should continue for a total of 7 to 10 days treatment. I haven't devised her to return for urgent evaluation should she experience recurrent symptoms after discharge and she has expressed understanding. She will need surveillance colonoscopy in 4 to [address] Barton office to schedule this appointment. #2. Other specified counseling -- Patient seen for greater than 30 minutes. Greater than 50% of this time was spent counseling regarding differential diagnosis, likely diagnosis,, diagnostic and therapeutic options, risks, benefits, and alternatives to procedures and medications, informed consent, and plan of care generally. Patient has expressed understanding and wishes to proceed. Recommendations: -- continue antibiotic for a total of 7-10 days therapy -- follow-up with Dr. Barton in the outpatient clinic in 4 to 6 weeks -- return to the emergency department for urgent evaluation with symptoms -- okay to discharge from our perspective
--- NOTE | 2017-07-25 10:27 | Discharge Summary ---
Hospital Course - Hospital Course Hospital Course: 66-year-old lady who presented to emergency room with abdominal pain, she has a past medical history of hypertension, hyperlipidemia, asthma, gastritis. She had tried to monitor her symptoms at home when he first started but did not respond and his presentation to the emergency room. Here in the ER, her symptoms as initially attributed to possible urinary tract infection subsequent evaluation with a CT scan showed a sigmoid diverticulitis with adjacent abscess collection. She was started on IV antibiotics, Npo and IV fluid hydration. The fever subsided, abdominal pain subsided and she was gradually started back on oral feeding which he tolerated well. She was evaluated by gastroenterology and surgery of which were comfortable with management plan conservatively and have now cleared her for discharge to outpatient. Stay was complicated by dropping hematocrit over this admission time noted, no obvious bleeding was found. Since with her diverticulitis a stool occult blood will be misleading, will recommend that she follows up with gastroenterology for a stool occult blood testing and for possible colonoscopy at some point when she completes treatment for acute diverticulitis. She is to go home on oral antibiotics for 10 days and follow-up with her primary care physician as well as gastroenterology as outpatient. Rest of her hospital stay was uneventful and achieved maximum benefit of in- hospital care. - Time spent with patient Time with patient DS: Greater than 30 minutes Diagnosis - Discharge Diagnosis (1) Diverticulitis Status: Acute (2) Diverticular disease of intestine with perforation and abscess Status: Acute (3) Sepsis Status: Acute Specialty Discharge - Follow Up or Referrals Follow up with: Yan Thompson MD [Physician] - (Follow up with Dr. Barton. Call [phone] to schedule follow up appointment.) Stalin Ngo MD [Physician] - Discharge Plan - Discharge Data Disposition: Disch To Home/Self Care Condition at Discharge: Stable Discharge Diet: advance to your usual diet, high fiber diet, low salt diet Activity: resume usual activities as tolerated Hygiene: no restrictions - Discharge Medications New metroNIDAZOLE TAB [Flagyl Cap/Tab] 500 mg PO Q8HR #20 tablet Amoxicillin/Clav Tab [Augmentin Tab] 875 mg PO Q12H #7 tablet Ondansetron Tab [Zofran Tab] 4 mg PO Q6H PRN #20 tablet PRN Reason: Nausea/Vomiting Continue Methocarbamol Tab [Robaxin Tab] 500 mg PO TID PRN PRN Reason: MUSCLE SPASMS hydroCHLOROthiazide [Hydrochlorothiazide] 12.5 mg PO DAILY [place]-3 Fatty Acids [Fish Oil Concentrate] 1,000 mg PO TID - Follow Up or Referral Follow Up: Yan Thompson MD [Physician] - (Follow up with Dr. Barton. Call [phone] to schedule follow up appointment.) Stalin Ngo MD [Physician] - - Forms/Instructions Additional Discharge Instructions: Follow-up with PCP. Follow-up with gastroenterology and surgery as scheduled. Exam - Constitutional Vitals: Period Temp Pulse Resp BP Sys/Gunderson Pulse Ox Last 24 Hr 97.5 F-99.5 F 64-90 16-21 141-157/68-85 95-100 Discharge Results Procedures and tests throughout hospitalization: Pending Orders 07/22/17 13:12 Blood Culture Stat Labs on day of discharge: Preliminary micro results at discharge 07/22/17 13:12 Blood Culture - Preliminary Blood No growth at 1 day 07/22/17 13:12 Blood Culture - Preliminary Blood No growth at 1 day DS: Provider Date of admission: 07/22/17 11:48 Primary care physician: Bruce Ruvalcaba MD Attending physician on admission: Miky Blackwood Consults: 07/22/17 12:45 Consult to Physician [CONS] Routine Comment: Consulting Provider: Mauri Barton When should Consulting Provider be notified: Now Person Notified: buddy Date Notified: 07/22/17 Time Notified: 13:43 07/22/17 12:46 Consult to Physician [CONS] Routine Comment: physician rn rehabilitation Consulting Provider: Omar Sanchez When should Consulting Provider be notified: Now Person Notified: burt Date Notified: 07/22/17 Time Notified: 13:21 Discharging clinician: Jason Ha MD
--- NOTE | 2017-07-25 13:56 | General Surgery Progress Note ---
Assessment and Plan (1) Diverticular disease of intestine with perforation and abscess Status: Acute Assessment and plan: The patient has completely recovered symptomatically from her acute complicated diverticulitis. She did not require drainage of her abscesses but these will need to be watched down the road. She tolerated oral antibiotics well. There is nothing that prevents her from being able to be discharged home today but she will need to follow-up with Dr. Barton and Dr. Sanchez as an outpatient. This was stressed with her today and also we went over some of the warning signs that she would have to look out for that could indicate worsening infection and if these occur she will have to call or come back to the ER. Subjective Patient reports: Present: no new complaints, feels better, tolerating a regular diet, flatus, bowel movement, afebrile. Absent: diarrhea, blood in stool, nausea, vomiting Narrative: The patient is pain-free. She is tolerating her diet with no nausea or vomiting. She is afebrile and her white blood cell count is normalized. She tolerated her oral antibiotic regimen well yesterday. Exam - Constitutional Vitals: Period Temp Pulse Resp BP Sys/Gunderson Pulse Ox Last 24 Hr 97.7 F-99.5 F 72-90 18-21 141-157/68-85 95-100 General appearance: no acute distress, over weight - Head Head exam: Present: normal inspection, normocephalic - Eye Eye exam: Present: EOMI. Absent: scleral icterus Pupils: Present: HAROON - ENT ENT exam: Present: normal exam Mouth exam: Present: normal external inspection, normal voice - Neck Neck exam: Present: normal inspection, trachea midline - Respiratory Respiratory exam: Present: clear to auscultation bilaterally. Absent: accessory muscle use, chest wall tenderness - Cardiovascular Cardiovascular exam: Present: RRR. Absent: systolic murmur, tachycardia - GI/Abdominal GI/Abdominal exam: Present: normal bowel sounds, soft. Absent: tenderness, rebound - Extremities Exam Extremities exam: Present: normal inspection, normal capillary refill - Back Exam Back exam: Present: normal inspection - Neurological Exam Neurological exam: Present: alert, oriented X3 Speech: Present: normal - Skin Skin exam: Present: normal color, warm Results - Labs CBC & BMP: 07/24/17 05:20 07/23/17 04:56 Specialty Discharge - Follow Up or Referrals Follow up with: Yan Thompson MD [Physician] - (Follow up with Dr. Barton. Call [phone] to schedule follow up appointment.) Stalin Ngo MD [Physician] -
== END 2017-07-25 12:10 | disposition home or self-care (01) | DRG 872 ==
LOC: N.ED 09:08 → N.EDINP 11:48 → SUATTDRO 11:48 → N.EDINP 12:35 → N.2E 12:48
PROVIDERS: ATTEND Internal Medicine

== ENCOUNTER 2017-09-29 11:37 | Inpatient (IN) ==
[2017-09-29] MEDS ORDERED: cefOXitin 1,000 MG in SODIUM CHLORIDE 0.9% 100 ML IV STA (12:45)
[2017-09-29] MEDS ORDERED: LACTATED RINGERS 2,000 ML IV ONE (12:45)
[2017-09-29] MEDS ORDERED: HYDROmorphone 2 MG/1 ML VIAL ONE (13:13)
[2017-09-29] MEDS ORDERED: ONDANSETRON 4 MG/2 ML VIAL ONE ×2 (13:13→14:12)
[2017-09-29 13:20] LABS: Basophils % 0.4 % (0.0-0.8); Hematocrit 47.5 VOL% (35.7-47.0); Hemoglobin 15.8 GM/DL (12.0-16.0); Immature Granulocytes % 0.5 %; Immature Granulocytes Absolute 0.04 #; Lymphocytes # 1.5 10*3/uL (1.4-4.0); Lymphocytes % 18.8 % (21.3-54.2); Mean Corpuscular HGB Conc 33.3 GM/DL (32-36); Mean Corpuscular Hemoglobin 31 PG (27-34); Mean Corpuscular Volume 91.7 FL (87-102); Mean Platelet Volume 10.7 FL (9.6-12.0); Monocytes # 0.2 10*3/uL (0.11-0.8); Monocytes % 2.6 % (1.7-12.7); Neutrophils % 77.7 % (38.7-73.9); Platelet Count 236 T/CUMM (130-400); Red Blood Count 5.18 MC/CUMM (3.8-5.5); Red Cell Distribution Width 13.5 % (9.3-17.3); White Blood Count 7.7 T/CUMM (4-12)
[2017-09-29] MEDS ORDERED: HYDROmorphone 2 MG/1 ML VIAL IV STA (13:21)
[2017-09-29] MEDS ORDERED: ONDANSETRON 4 MG/2 ML VIAL IV STA (13:21)
[2017-09-29] MEDS ORDERED: HEPARIN/NACL 0.9% 2 UNITS/ML 0 ML IV ONE (13:51)
[2017-09-29] MEDS ORDERED: PHENYLEPHRINE DRIP 0 MG/0 ML PREMIX IV ONE (13:51)
[2017-09-29] MEDS ORDERED: NEOSTIGMINE 10 MG/10 ML VIAL ONE (14:12)
[2017-09-29] MEDS ORDERED: PHENYLEPHRINE 1 MG/10 ML SYRINGE IV ONE (14:12)
[2017-09-29] MEDS ORDERED: GLYCOPYRROLATE 0.4 MG/2 ML VIAL ONE (14:12)
[2017-09-29] MEDS ORDERED: DEXAMETHASONE 10 MG/1 ML VIAL ONE (14:12)
[2017-09-29] MEDS ORDERED: LIDOCAINE 1% 5 ML VIAL ONE (14:12)
[2017-09-29] MEDS ORDERED: SUCCINYLCHOLINE 200 MG/10 ML VIAL ONE (14:12)
[2017-09-29] MEDS ORDERED: ROCURONIUM 100 MG/10 ML VIAL IV ONE (14:12)
[2017-09-29] MEDS ORDERED: ETOMIDATE 20 MG/10 ML VIAL IV ONE (14:12)
[2017-09-29 14:13] LABS: Albumin 4.2 G/DL (3.4-5.0); Bilirubin,Total 0.7 MG/DL (0.2-1.0); Calcium 9.1 MG/DL (8.5-10.1); Osmolality,Calculated 278.4 MOS/KG (273-304); Potassium 3.5 MMOL/L (3.5-5.1); Total Protein 8.2 G/DL (6.4-8.3)
[2017-09-29] MEDS ORDERED: ONDANSETRON 4 MG/2 ML VIAL IV PRN (14:22)
[2017-09-29] MEDS ORDERED: ACETAMINOPHEN 325 MG TABLET PO PRN (14:22)
[2017-09-29] MEDS: LABETALOL 20 MG/4 ML SYRINGE IV SCH ×34 (16:25→23:59)
[2017-09-29] MEDS ORDERED: LACTATED RINGERS 3,000 ML IV ONE (16:32)
[2017-09-29] MEDS ORDERED: fentaNYL 100 MCG/2 ML VIAL ONE (16:32)
[2017-09-29] MEDS ORDERED: SEVOFLURANE 1 UNIT/15 MINUTE INH ONE (16:32)
[2017-09-29] MEDS ORDERED: MIDAZOLAM 2 MG/2 ML VIAL ONE (16:32)
[2017-09-29 16:34] LABS: Amorphous Crystals,Urine Few /HPF (Few); Apearance,Urine CLOUDY (Clear); Bacteria,Urine Moderate /HPF (Few); Bilirubin,Urine Negative (Negative); Blood, Urine Negative (Negative); Glucose,Urine (UA) Negative (Negative); Ketones,Urine Negative (Negative); Mucus,Urine Many /LPF (Occasional); Nitrite,Urine Negative (Negative); Protein,Urine 30 MG/DL; Squamous Epithelial Cell,Urine Occasional /HPF (0-10); Urine Color Yellow (Yellow); Urine Urobilinogen < 2.0 EU/DL (0.2-1.0)
[2017-09-29 16:37] LABS: Band Neutrophils 16 % (0-10); Lymphocytes 24 % (20-55); Segmented Neutrophils 57 % (50-85); Total Cells Counted 100
[2017-09-29 16:38] LABS: Platelet Estimate Normal
[2017-09-29] MEDS ORDERED: SUGAMMADEX 200 MG/2 ML VIAL IV ONE ×2 (17:35→17:37)
[2017-09-29] MEDS: DEXTROSE 5% LACTATED RINGERS 1,000 ML IV SCH (19:20)
[2017-09-29 19:57] LABS: Hematocrit 42.9 VOL% (35.7-47.0); Hemoglobin 14.5 GM/DL (12.0-16.0)
[2017-09-29] MEDS: HYDROmorphone 2 MG/1 ML VIAL IV PRN (21:18)
[2017-09-30] MEDS: LABETALOL 20 MG/4 ML SYRINGE IV SCH ×2 (00:05)
[2017-09-30 00:45] LABS: Basophils # 0.1 10*3/uL (0.0-0.2); Basophils % 1.5 % (0.0-0.8); Eosinophils % 0.5 % (0.00-10.9); Hemoglobin 13.7 GM/DL (12.0-16.0); Lymphocytes # 0.4 10*3/uL (1.4-4.0); Lymphocytes % 9.9 % (21.3-54.2); Mean Corpuscular HGB Conc 33.4 GM/DL (32-36); Mean Corpuscular Hemoglobin 30 PG (27-34); Mean Corpuscular Volume 90.9 FL (87-102); Mean Platelet Volume 11.6 FL (9.6-12.0); Monocytes # 0.2 10*3/uL (0.11-0.8); Monocytes % 5.1 % (1.7-12.7); Neutrophils # 3.3 10*3/uL (1.4-7.4); Platelet Count 180 T/CUMM (130-400); Red Blood Count 4.51 MC/CUMM (3.8-5.5); Red Cell Distribution Width 13.5 % (9.3-17.3); White Blood Count 3.9 T/CUMM (4-12)
[2017-09-30] MEDS: HYDROmorphone 2 MG/1 ML VIAL IV PRN ×4 (03:13→21:11)
[2017-09-30 03:35] LABS: Albumin 2.8 G/DL (3.4-5.0); Bilirubin,Total 0.6 MG/DL (0.2-1.0); Calcium 8.2 MG/DL (8.5-10.1); Osmolality,Calculated 279.5 MOS/KG (273-304); Potassium 3.9 MMOL/L (3.5-5.1); Total Protein 5.8 G/DL (6.4-8.3)
[2017-09-30 04:21] LABS: Band Neutrophils 36 % (0-10); Lymphocytes 12 % (20-55); Metamyelocytes 1 %; Myelocytes 4 %; Segmented Neutrophils 44 % (50-85)
[2017-09-30 04:23] LABS: Platelet Estimate Normal; Total Cells Counted 100
[2017-09-30] MEDS: DEXTROSE 5% LACTATED RINGERS 1,000 ML IV SCH ×4 (04:55→22:17)
[2017-09-30 08:09] LABS: Hematocrit 41.9 VOL% (35.7-47.0); Hemoglobin 14.4 GM/DL (12.0-16.0)
[2017-09-30] MEDS: PANTOPRAZOLE 40 MG VIAL IV SCH (09:33)
[2017-09-30] MEDS: ENOXAPARIN 40 MG/0.4 ML SYRINGE SUBCUT SCH (09:34)
[2017-10-01] MEDS: DEXTROSE 5% LACTATED RINGERS 1,000 ML IV SCH ×3 (06:22→17:06)
[2017-10-01 07:11] LABS: Calcium 8.1 MG/DL (8.5-10.1); Osmolality,Calculated 281.4 MOS/KG (273-304); Potassium 3.7 MMOL/L (3.5-5.1)
[2017-10-01 09:08] LABS: Basophils % 0.1 % (0.0-0.8); Hematocrit 34.1 VOL% (35.7-47.0); Hemoglobin 11.6 GM/DL (12.0-16.0); Immature Granulocytes % 0.3 %; Immature Granulocytes Absolute 0.02 #; Lymphocytes # 0.5 10*3/uL (1.4-4.0); Lymphocytes % 5.8 % (21.3-54.2); Mean Corpuscular Hemoglobin 30 PG (27-34); Mean Corpuscular Volume 88.6 FL (87-102); Mean Platelet Volume 12.1 FL (9.6-12.0); Monocytes # 0.2 10*3/uL (0.11-0.8); Monocytes % 2.3 % (1.7-12.7); Neutrophils # 7.2 10*3/uL (1.4-7.4); Neutrophils % 91.5 % (38.7-73.9); Platelet Count 115 T/CUMM (130-400); Red Blood Count 3.85 MC/CUMM (3.8-5.5); Red Cell Distribution Width 13.6 % (9.3-17.3); White Blood Count 7.9 T/CUMM (4-12)
[2017-10-01] MEDS: HYDROmorphone 2 MG/1 ML VIAL IV PRN ×2 (09:30→20:27)
[2017-10-01 10:05] LABS: Band Neutrophils 32 % (0-10); Hypochromasia Slight; Lymphocytes 12 % (20-55); Platelet Estimate Decreased; Segmented Neutrophils 53 % (50-85); Total Cells Counted 100
[2017-10-01] MEDS: PANTOPRAZOLE 40 MG VIAL IV SCH (10:09)
[2017-10-01] MEDS: ENOXAPARIN 40 MG/0.4 ML SYRINGE SUBCUT SCH (10:09)
[2017-10-01] MEDS: AMPICILLIN/SULBACTAM 3,000 MG in SODIUM CHLORIDE 0.9% 100 ML IV SCH ×3 (10:17→22:19)
[2017-10-02] MEDS: AMPICILLIN/SULBACTAM 3,000 MG in SODIUM CHLORIDE 0.9% 100 ML IV SCH ×4 (04:33→22:10)
[2017-10-02] MEDS: DEXTROSE 5% LACTATED RINGERS 1,000 ML IV SCH ×2 (04:34→12:07)
[2017-10-02] MEDS: HYDROmorphone 2 MG/1 ML VIAL IV PRN ×3 (04:36→17:41)
[2017-10-02 05:59] LABS: Basophils % 0.7 % (0.0-0.8); Hematocrit 30.3 VOL% (35.7-47.0); Hemoglobin 10.2 GM/DL (12.0-16.0); Immature Granulocytes % 0.2 %; Immature Granulocytes Absolute 0.01 #; Lymphocytes # 0.5 10*3/uL (1.4-4.0); Lymphocytes % 8.8 % (21.3-54.2); Mean Corpuscular HGB Conc 33.7 GM/DL (32-36); Mean Corpuscular Hemoglobin 30 PG (27-34); Mean Corpuscular Volume 89.4 FL (87-102); Mean Platelet Volume 10.7 FL (9.6-12.0); Monocytes # 0.2 10*3/uL (0.11-0.8); Monocytes % 3.9 % (1.7-12.7); Neutrophils # 4.9 10*3/uL (1.4-7.4); Neutrophils % 86.4 % (38.7-73.9); Platelet Count 142 T/CUMM (130-400); Red Blood Count 3.39 MC/CUMM (3.8-5.5); Red Cell Distribution Width 13.6 % (9.3-17.3); White Blood Count 5.7 T/CUMM (4-12)
[2017-10-02 06:44] LABS: Calcium 8.1 MG/DL (8.5-10.1); Osmolality,Calculated 280.3 MOS/KG (273-304); Potassium 3.4 MMOL/L (3.5-5.1)
[2017-10-02 07:28] LABS: Anisocytosis 1+; Band Neutrophils 23 % (0-10); Lymphocytes 9 % (20-55); Metamyelocytes 3 %; Platelet Estimate Decreased; Segmented Neutrophils 63 % (50-85); Total Cells Counted 100
[2017-10-02 07:29] LABS: Microcytosis 1+
[2017-10-02] MEDS: ENOXAPARIN 40 MG/0.4 ML SYRINGE SUBCUT SCH (09:30)
[2017-10-02] MEDS: PANTOPRAZOLE 40 MG VIAL IV SCH (09:31)
[2017-10-03] MEDS: DEXTROSE 5% LACTATED RINGERS 1,000 ML IV SCH ×3 (02:48→20:01)
[2017-10-03] MEDS: LABETALOL 20 MG/4 ML SYRINGE IV PRN ×3 (04:24→23:50)
[2017-10-03] MEDS: AMPICILLIN/SULBACTAM 3,000 MG in SODIUM CHLORIDE 0.9% 100 ML IV SCH ×4 (04:27→21:52)
[2017-10-03] MEDS: HYDROmorphone 2 MG/1 ML VIAL IV PRN ×3 (06:33→20:01)
[2017-10-03] MEDS: ENOXAPARIN 40 MG/0.4 ML SYRINGE SUBCUT SCH ×2 (08:04→09:53)
[2017-10-03] MEDS: PANTOPRAZOLE 40 MG VIAL IV SCH (08:04)
[2017-10-04] MEDS: LABETALOL 20 MG/4 ML SYRINGE IV PRN ×2 (00:49→01:11)
[2017-10-04] MEDS: AMPICILLIN/SULBACTAM 3,000 MG in SODIUM CHLORIDE 0.9% 100 ML IV SCH ×2 (04:44→11:07)
[2017-10-04] MEDS: DEXTROSE 5% LACTATED RINGERS 1,000 ML IV SCH (05:04)
[2017-10-04 09:08] LABS: Basophils # 0.1 10*3/uL (0.0-0.2); Basophils % 0.8 % (0.0-0.8); Eosinophils % 0.1 % (0.00-10.9); Hemoglobin 10.3 GM/DL (12.0-16.0); Immature Granulocytes % 0.8 %; Immature Granulocytes Absolute 0.08 #; Lymphocytes # 1.1 10*3/uL (1.4-4.0); Lymphocytes % 10.9 % (21.3-54.2); Mean Corpuscular HGB Conc 34.3 GM/DL (32-36); Mean Corpuscular Hemoglobin 31 PG (27-34); Monocytes # 0.6 10*3/uL (0.11-0.8); Monocytes % 5.8 % (1.7-12.7); Neutrophils # 7.9 10*3/uL (1.4-7.4); Neutrophils % 81.6 % (38.7-73.9); Platelet Count 197 T/CUMM (130-400); Red Blood Count 3.37 MC/CUMM (3.8-5.5); White Blood Count 9.7 T/CUMM (4-12)
[2017-10-04 09:25] LABS: Calcium 8.2 MG/DL (8.5-10.1); Magnesium 1.7 MG/DL (1.8-2.4); Osmolality,Calculated 282.1 MOS/KG (273-304); Potassium 2.7 MMOL/L (3.5-5.1)
[2017-10-04] MEDS: ENOXAPARIN 40 MG/0.4 ML SYRINGE SUBCUT SCH (10:47)
[2017-10-04] MEDS: PANTOPRAZOLE 40 MG VIAL IV SCH (10:48)
[2017-10-04 11:11] LABS: Band Neutrophils 12 % (0-10); Eosinophils 1 % (0-10); Hypochromasia Slight; Lymphocytes 12 % (20-55); Microcytosis 1+; Platelet Estimate Adequate; Segmented Neutrophils 70 % (50-85); Total Cells Counted 100
[2017-10-04] MEDS: hydroCHLOROthiazide 12.5 MG CAPSULE PO SCH (12:28)
[2017-10-04] MEDS ORDERED: NON-FORMULARY MEDICATION (Hydrochlorothiazide [Hydrochlorothiazide] 12.5 MG) PO SCH (12:45)
[2017-10-04] MEDS: HYDROmorphone 2 MG/1 ML VIAL IV PRN (14:55)
[2017-10-04] MEDS ORDERED: MAGNESIUM SULF RIDER 4 GM in PREMIX 1 EACH IV PRN (15:26)
[2017-10-04] MEDS ORDERED: MAGNESIUM SULF RIDER 2 GM in PREMIX 1 EACH IV PRN (15:26)
[2017-10-04] MEDS: DEXT 5% NACL 0.45% KCL 20 MEQ 20 MEQ/1,000 ML BAG IV SCH (15:38)
[2017-10-04] MEDS: POTASSIUM CHLORIDE 20 MEQ TABLET PO PRN ×4 (15:39→22:11)
[2017-10-04] MEDS: PIPERACILLIN/TAZOBACTAM 3,375 MG in SODIUM CHLORIDE 0.9% 100 ML IV SCH (17:49)
[2017-10-05] MEDS: PIPERACILLIN/TAZOBACTAM 3,375 MG in SODIUM CHLORIDE 0.9% 100 ML IV SCH ×3 (00:02→15:40)
[2017-10-05 09:54] LABS: Albumin 2.2 G/DL (3.4-5.0); Osmolality,Calculated 278.4 MOS/KG (273-304); Potassium 3.5 MMOL/L (3.5-5.1); Total Protein 5.9 G/DL (6.4-8.3)
[2017-10-05 11:38] LABS: Magnesium 2.3 MG/DL (1.8-2.4)
[2017-10-05] MEDS: hydroCHLOROthiazide 12.5 MG CAPSULE PO SCH (11:39)
[2017-10-05] MEDS: DEXT 5% NACL 0.45% KCL 20 MEQ 20 MEQ/1,000 ML BAG IV SCH ×2 (11:39→17:49)
[2017-10-05] MEDS: PANTOPRAZOLE 40 MG VIAL IV SCH (11:40)
[2017-10-05] MEDS: ENOXAPARIN 40 MG/0.4 ML SYRINGE SUBCUT SCH (11:40)
[2017-10-05] MEDS: HYDROmorphone 2 MG/1 ML VIAL IV PRN (17:44)
[2017-10-06] MEDS: PIPERACILLIN/TAZOBACTAM 3,375 MG in SODIUM CHLORIDE 0.9% 100 ML IV SCH ×3 (00:19→17:15)
[2017-10-06] MEDS: HYDROmorphone 2 MG/1 ML VIAL IV PRN ×2 (05:31→15:55)
[2017-10-06 06:01] LABS: Basophils # 0.1 10*3/uL (0.0-0.2); Basophils % 0.5 % (0.0-0.8); Eosinophils # 0.1 10*3/uL (0.0-0.87); Eosinophils % 0.4 % (0.00-10.9); Hematocrit 28.6 VOL% (35.7-47.0); Hemoglobin 9.8 GM/DL (12.0-16.0); Immature Granulocytes % 1.4 %; Immature Granulocytes Absolute 0.19 #; Lymphocytes # 1.9 10*3/uL (1.4-4.0); Lymphocytes % 13.9 % (21.3-54.2); Mean Corpuscular HGB Conc 34.3 GM/DL (32-36); Mean Corpuscular Hemoglobin 30 PG (27-34); Mean Corpuscular Volume 88.3 FL (87-102); Mean Platelet Volume 10.9 FL (9.6-12.0); Monocytes # 0.9 10*3/uL (0.11-0.8); Monocytes % 6.4 % (1.7-12.7); Neutrophils # 10.3 10*3/uL (1.4-7.4); Neutrophils % 77.4 % (38.7-73.9); Platelet Count 229 T/CUMM (130-400); Red Blood Count 3.24 MC/CUMM (3.8-5.5); White Blood Count 13.3 T/CUMM (4-12)
[2017-10-06 06:44] LABS: Band Neutrophils 11 % (0-10); Eosinophils 1 % (0-10); Lymphocytes 11 % (20-55); Segmented Neutrophils 73 % (50-85); Total Cells Counted 100
[2017-10-06 06:45] LABS: Hypochromasia 1+; Microcytosis 1+
[2017-10-06 06:46] LABS: Platelet Estimate Normal
[2017-10-06] MEDS: ENOXAPARIN 40 MG/0.4 ML SYRINGE SUBCUT SCH (09:25)
[2017-10-06] MEDS: PANTOPRAZOLE 40 MG VIAL IV SCH (09:25)
[2017-10-06] MEDS: hydroCHLOROthiazide 12.5 MG CAPSULE PO SCH (09:44)
[2017-10-06] MEDS: DEXT 5% NACL 0.45% KCL 20 MEQ 20 MEQ/1,000 ML BAG IV SCH (10:35)
[2017-10-07] MEDS: PIPERACILLIN/TAZOBACTAM 3,375 MG in SODIUM CHLORIDE 0.9% 100 ML IV SCH ×4 (00:54→23:53)
[2017-10-07] MEDS: HYDROmorphone 2 MG/1 ML VIAL IV PRN (01:55)
[2017-10-07 02:25] LABS: Basophils % 0.3 % (0.0-0.8); Eosinophils % 0.2 % (0.00-10.9); Hematocrit 28.5 VOL% (35.7-47.0); Hemoglobin 9.7 GM/DL (12.0-16.0); Immature Granulocytes % 1.5 %; Immature Granulocytes Absolute 0.19 #; Lymphocytes # 1.8 10*3/uL (1.4-4.0); Mean Corpuscular Hemoglobin 30 PG (27-34); Mean Corpuscular Volume 88.5 FL (87-102); Mean Platelet Volume 11.4 FL (9.6-12.0); Monocytes # 0.9 10*3/uL (0.11-0.8); Neutrophils # 9.7 10*3/uL (1.4-7.4); Platelet Count 242 T/CUMM (130-400); Red Blood Count 3.22 MC/CUMM (3.8-5.5); Red Cell Distribution Width 13.8 % (9.3-17.3); White Blood Count 12.6 T/CUMM (4-12)
[2017-10-07 02:54] LABS: Calcium 7.6 MG/DL (8.5-10.1); Osmolality,Calculated 274.5 MOS/KG (273-304); Potassium 3.2 MMOL/L (3.5-5.1)
[2017-10-07 03:12] LABS: Anisocytosis 2+; Hypochromasia 2+; Microcytosis 2+; Platelet Estimate Normal
[2017-10-07] MEDS: DEXT 5% NACL 0.45% KCL 20 MEQ 20 MEQ/1,000 ML BAG IV SCH ×2 (05:33→23:52)
[2017-10-07] MEDS: ENOXAPARIN 40 MG/0.4 ML SYRINGE SUBCUT SCH ×2 (08:53→09:35)
[2017-10-07] MEDS: PANTOPRAZOLE 40 MG VIAL IV SCH (08:53)
[2017-10-07] MEDS: hydroCHLOROthiazide 12.5 MG CAPSULE PO SCH (08:53)
[2017-10-07] MEDS: TOBRAMYCIN INJ 320 MG in SODIUM CHLORIDE 0.9% 100 ML IV SCH (21:35)
[2017-10-08 06:47] LABS: Basophils % 0.2 % (0.0-0.8); Eosinophils % 0.2 % (0.00-10.9); Hematocrit 29.3 VOL% (35.7-47.0); Hemoglobin 10.1 GM/DL (12.0-16.0); Immature Granulocytes % 1.7 %; Immature Granulocytes Absolute 0.21 #; Lymphocytes # 1.5 10*3/uL (1.4-4.0); Lymphocytes % 11.9 % (21.3-54.2); Mean Corpuscular HGB Conc 34.5 GM/DL (32-36); Mean Corpuscular Hemoglobin 30 PG (27-34); Mean Corpuscular Volume 86.9 FL (87-102); Mean Platelet Volume 11.4 FL (9.6-12.0); Monocytes % 7.8 % (1.7-12.7); Neutrophils # 9.6 10*3/uL (1.4-7.4); Neutrophils % 78.2 % (38.7-73.9); Platelet Count 291 T/CUMM (130-400); Red Blood Count 3.37 MC/CUMM (3.8-5.5); Red Cell Distribution Width 13.6 % (9.3-17.3); White Blood Count 12.3 T/CUMM (4-12)
[2017-10-08 07:12] LABS: Calcium 7.8 MG/DL (8.5-10.1); Osmolality,Calculated 272.5 MOS/KG (273-304); Potassium 2.9 MMOL/L (3.5-5.1)
[2017-10-08] MEDS: POTASSIUM CHLORIDE 20 MEQ TABLET PO PRN ×4 (08:41→17:19)
[2017-10-08] MEDS: hydroCHLOROthiazide 12.5 MG CAPSULE PO SCH (08:41)
[2017-10-08] MEDS: PANTOPRAZOLE 40 MG VIAL IV SCH (08:51)
[2017-10-08] MEDS: ENOXAPARIN 40 MG/0.4 ML SYRINGE SUBCUT SCH ×2 (08:53→10:03)
[2017-10-08] MEDS: PIPERACILLIN/TAZOBACTAM 3,375 MG in SODIUM CHLORIDE 0.9% 100 ML IV SCH ×3 (08:55→23:52)
[2017-10-08] MEDS: LABETALOL 100 MG/20 ML VIAL IV PRN ×2 (10:04→23:47)
[2017-10-08] MEDS: TOBRAMYCIN INJ 320 MG in SODIUM CHLORIDE 0.9% 100 ML IV SCH (19:43)
[2017-10-09] MEDS: POTASSIUM CHLORIDE 20 MEQ TABLET PO PRN ×2 (00:23→02:34)
[2017-10-09] MEDS: LABETALOL 100 MG/20 ML VIAL IV PRN ×3 (04:05→20:17)
[2017-10-09] MEDS: ENOXAPARIN 40 MG/0.4 ML SYRINGE SUBCUT SCH (09:21)
[2017-10-09] MEDS: hydroCHLOROthiazide 12.5 MG CAPSULE PO SCH (09:21)
[2017-10-09] MEDS: PIPERACILLIN/TAZOBACTAM 3,375 MG in SODIUM CHLORIDE 0.9% 100 ML IV SCH ×2 (09:21→17:21)
[2017-10-09] MEDS: PANTOPRAZOLE 40 MG VIAL IV SCH (09:21)
[2017-10-09] MEDS: SODIUM HYPOCHLORITE 0.25% IRRIG 473 ML BOTTLE TOP SCH ×2 (10:34→22:28)
[2017-10-09] MEDS: DEXT 5% NACL 0.45% KCL 20 MEQ 20 MEQ/1,000 ML BAG IV SCH (17:21)
[2017-10-09] MEDS: TOBRAMYCIN INJ 320 MG in SODIUM CHLORIDE 0.9% 100 ML IV SCH (22:27)
[2017-10-10] MEDS: PIPERACILLIN/TAZOBACTAM 3,375 MG in SODIUM CHLORIDE 0.9% 100 ML IV SCH ×4 (00:53→23:33)
[2017-10-10] MEDS: LABETALOL 100 MG/20 ML VIAL IV PRN ×4 (03:41→19:57)
[2017-10-10] MEDS: SODIUM HYPOCHLORITE 0.25% IRRIG 473 ML BOTTLE TOP SCH ×2 (09:02→20:05)
[2017-10-10] MEDS: PANTOPRAZOLE 40 MG VIAL IV SCH (09:03)
[2017-10-10] MEDS: hydroCHLOROthiazide 12.5 MG CAPSULE PO SCH (09:03)
[2017-10-10] MEDS: ENOXAPARIN 40 MG/0.4 ML SYRINGE SUBCUT SCH ×2 (09:03→13:42)
[2017-10-10] MEDS: TOBRAMYCIN INJ 320 MG in SODIUM CHLORIDE 0.9% 100 ML IV SCH (20:03)
[2017-10-10] MEDS: DEXT 5% NACL 0.45% KCL 20 MEQ 20 MEQ/1,000 ML BAG IV SCH (23:32)
[2017-10-11 05:29] LABS: Basophils % 0.4 % (0.0-0.8); Eosinophils # 0.1 10*3/uL (0.0-0.87); Eosinophils % 0.7 % (0.00-10.9); Hematocrit 29.2 VOL% (35.7-47.0); Hemoglobin 9.9 GM/DL (12.0-16.0); Immature Granulocytes % 1.1 %; Immature Granulocytes Absolute 0.12 #; Lymphocytes # 1.7 10*3/uL (1.4-4.0); Lymphocytes % 15.4 % (21.3-54.2); Mean Corpuscular HGB Conc 33.9 GM/DL (32-36); Mean Corpuscular Hemoglobin 30 PG (27-34); Mean Platelet Volume 10.7 FL (9.6-12.0); Monocytes % 8.6 % (1.7-12.7); Neutrophils # 8.2 10*3/uL (1.4-7.4); Neutrophils % 73.8 % (38.7-73.9); Platelet Count 397 T/CUMM (130-400); Red Blood Count 3.32 MC/CUMM (3.8-5.5); Red Cell Distribution Width 14.1 % (9.3-17.3); White Blood Count 11.1 T/CUMM (4-12)
[2017-10-11 06:00] LABS: Osmolality,Calculated 272.5 MOS/KG (273-304); Potassium 3.6 MMOL/L (3.5-5.1)
[2017-10-11] MEDS: PANTOPRAZOLE 40 MG VIAL IV SCH (08:47)
[2017-10-11] MEDS: PIPERACILLIN/TAZOBACTAM 3,375 MG in SODIUM CHLORIDE 0.9% 100 ML IV SCH ×2 (08:48→16:06)
[2017-10-11] MEDS: hydroCHLOROthiazide 25 MG TABLET PO SCH (08:50)
[2017-10-11] MEDS ORDERED: LIDOCAINE 1%/EPI INJ 20 ML VIAL ONE (09:42)
[2017-10-11] MEDS ORDERED: BUPIVACAINE 0.25% 50 ML VIAL ONE (09:42)
[2017-10-11] MEDS ORDERED: MIDAZOLAM 2 MG/2 ML VIAL ONE (11:02)
[2017-10-11] MEDS ORDERED: fentaNYL 100 MCG/2 ML VIAL ONE (11:03)
[2017-10-11] MEDS ORDERED: PROPOFOL 200 MG/20 ML VIAL IV ONE (11:03)
[2017-10-11] MEDS ORDERED: LABETALOL 100 MG/20 ML VIAL IV ONE (11:03)
[2017-10-11] MEDS ORDERED: SODIUM CHLORIDE 0.9% 250 ML IV ONE (11:03)
[2017-10-11] MEDS ORDERED: KETAMINE 500 MG/10 ML VIAL ONE (11:03)
[2017-10-11] MEDS ORDERED: LABETALOL 20 MG/4 ML SYRINGE IV ONE (11:22)
[2017-10-11] MEDS: LABETALOL 100 MG/20 ML VIAL IV PRN (11:25)
[2017-10-11] MEDS: ENOXAPARIN 40 MG/0.4 ML SYRINGE SUBCUT SCH (15:06)
[2017-10-11] MEDS: SODIUM HYPOCHLORITE 0.25% IRRIG 473 ML BOTTLE TOP SCH ×2 (15:07→22:02)
[2017-10-11] MEDS: DEXT 5% NACL 0.45% KCL 20 MEQ 20 MEQ/1,000 ML BAG IV SCH ×2 (15:07→21:59)
[2017-10-11] MEDS: TOBRAMYCIN INJ 320 MG in SODIUM CHLORIDE 0.9% 100 ML IV SCH (18:11)
[2017-10-12] MEDS: PIPERACILLIN/TAZOBACTAM 3,375 MG in SODIUM CHLORIDE 0.9% 100 ML IV SCH ×4 (01:18→23:41)
[2017-10-12] MEDS: PANTOPRAZOLE 40 MG VIAL IV SCH (08:51)
[2017-10-12] MEDS: hydroCHLOROthiazide 25 MG TABLET PO SCH (08:51)
[2017-10-12] MEDS: ENOXAPARIN 40 MG/0.4 ML SYRINGE SUBCUT SCH (10:17)
[2017-10-12] MEDS: SODIUM HYPOCHLORITE 0.25% IRRIG 473 ML BOTTLE TOP SCH ×2 (11:59→20:56)
[2017-10-12] MEDS: LISINOPRIL 5 MG TABLET PO SCH (13:14)
[2017-10-12] MEDS ORDERED: amLODIPine 2.5 MG TABLET PO ONE (16:50)
[2017-10-12] MEDS ORDERED: cloNIDine 0.1 MG TABLET PO PRN (16:51)
[2017-10-12] MEDS: POTASSIUM CHLORIDE 20 MEQ TABLET PO SCH (20:49)
[2017-10-13] MEDS: TOBRAMYCIN INJ 320 MG in SODIUM CHLORIDE 0.9% 100 ML IV SCH (04:27)
[2017-10-13 06:43] LABS: Calcium 8.3 MG/DL (8.5-10.1); Osmolality,Calculated 271.7 MOS/KG (273-304); Potassium 3.5 MMOL/L (3.5-5.1)
[2017-10-13] MEDS: POTASSIUM CHLORIDE 20 MEQ TABLET PO PRN ×2 (09:21→11:06)
[2017-10-13] MEDS: ENOXAPARIN 40 MG/0.4 ML SYRINGE SUBCUT SCH ×2 (09:21→10:17)
[2017-10-13] MEDS: POTASSIUM CHLORIDE 20 MEQ TABLET PO SCH ×3 (09:21→20:20)
[2017-10-13] MEDS: LISINOPRIL 5 MG TABLET PO SCH (09:21)
[2017-10-13] MEDS: PIPERACILLIN/TAZOBACTAM 3,375 MG in SODIUM CHLORIDE 0.9% 100 ML IV SCH ×3 (09:21→23:03)
[2017-10-13] MEDS: amLODIPine 2.5 MG TABLET PO SCH (09:21)
[2017-10-13] MEDS: PANTOPRAZOLE 40 MG VIAL IV SCH (09:21)
[2017-10-13] MEDS: hydroCHLOROthiazide 25 MG TABLET PO SCH (09:21)
[2017-10-13] MEDS: SODIUM HYPOCHLORITE 0.25% IRRIG 473 ML BOTTLE TOP SCH ×2 (10:13→20:21)
[2017-10-14] MEDS: TOBRAMYCIN INJ 320 MG in SODIUM CHLORIDE 0.9% 100 ML IV SCH (03:12)
[2017-10-14] MEDS: amLODIPine 2.5 MG TABLET PO SCH (09:14)
[2017-10-14] MEDS: hydroCHLOROthiazide 25 MG TABLET PO SCH (09:14)
[2017-10-14] MEDS: PANTOPRAZOLE 40 MG VIAL IV SCH (09:15)
[2017-10-14] MEDS: LISINOPRIL 5 MG TABLET PO SCH (09:15)
[2017-10-14] MEDS: POTASSIUM CHLORIDE 20 MEQ TABLET PO SCH ×3 (09:15→20:13)
[2017-10-14] MEDS: ENOXAPARIN 40 MG/0.4 ML SYRINGE SUBCUT SCH ×2 (09:15→11:22)
[2017-10-14] MEDS: PIPERACILLIN/TAZOBACTAM 3,375 MG in SODIUM CHLORIDE 0.9% 100 ML IV SCH ×3 (09:20→23:11)
[2017-10-14] MEDS: SODIUM HYPOCHLORITE 0.25% IRRIG 473 ML BOTTLE TOP SCH (11:22)
[2017-10-14] MEDS ORDERED: ESTRADIOL 0.01% VAG CREAM 42.5 GM TUBE VAG SCH (21:00)
[2017-10-15] MEDS: TOBRAMYCIN INJ 320 MG in SODIUM CHLORIDE 0.9% 100 ML IV SCH (03:01)
[2017-10-15 07:10] LABS: Calcium 8.8 MG/DL (8.5-10.1); Osmolality,Calculated 268.8 MOS/KG (273-304); Potassium 4.5 MMOL/L (3.5-5.1)
[2017-10-15] MEDS: PIPERACILLIN/TAZOBACTAM 3,375 MG in SODIUM CHLORIDE 0.9% 100 ML IV SCH (09:00)
[2017-10-15] MEDS: PANTOPRAZOLE 40 MG VIAL IV SCH (09:00)
[2017-10-15] MEDS: hydroCHLOROthiazide 25 MG TABLET PO SCH (09:01)
[2017-10-15] MEDS: POTASSIUM CHLORIDE 20 MEQ TABLET PO SCH ×2 (09:01→16:49)
[2017-10-15] MEDS: amLODIPine 2.5 MG TABLET PO SCH (09:01)
[2017-10-15] MEDS: LISINOPRIL 5 MG TABLET PO SCH (09:01)
[2017-10-15] MEDS: ENOXAPARIN 40 MG/0.4 ML SYRINGE SUBCUT SCH ×2 (09:02→09:11)
[2017-10-15] MEDS ORDERED: ACETIC ACID 0.25% IRRIGATION 1,000 ML BOTTLE IRRIG SCH (11:00)
[2017-10-15 16:23] VITALS: BP 164/86
== END 2017-10-15 16:45 | disposition home health service (06) | DRG 330 ==
LOC: N.ED 11:37 → N.EDINP 14:11 → N.CC 18:59 → N.5E 09-30 14:25
PROVIDERS: ADMIT Internal Medicine Gastroenterology; ATTEND Internal Medicine Gastroenterology

== ENCOUNTER 2018-01-24 02:43 | Inpatient (IN) ==
[2018-01-24] MEDS ORDERED: SODIUM CHLORIDE 0.9% 500 ML IV STA (03:58)
[2018-01-24] MEDS ORDERED: VANCOMYCIN INJ 1,000 MG in SODIUM CHLORIDE 0.9% 250 ML IV STA (03:58)
[2018-01-24 04:31] LABS: Basophils % 0.3 % (0.0-0.8); Eosinophils # 0.1 10*3/uL (0.0-0.87); Eosinophils % 0.6 % (0.00-10.9); Hemoglobin 9.8 GM/DL (12.0-16.0); Immature Granulocytes % 0.6 %; Lymphocytes # 1.8 10*3/uL (1.4-4.0); Lymphocytes % 11.7 % (21.3-54.2); Mean Corpuscular HGB Conc 31.6 GM/DL (32-36); Mean Corpuscular Hemoglobin 28 PG (27-34); Mean Corpuscular Volume 89.9 FL (87-102); Mean Platelet Volume 10.2 FL (9.6-12.0); Monocytes # 0.8 10*3/uL (0.11-0.8); Monocytes % 5.4 % (1.7-12.7); Neutrophils # 12.6 10*3/uL (1.4-7.4); Neutrophils % 81.4 % (38.7-73.9); Platelet Count 325 T/CUMM (130-400); Red Blood Count 3.45 MC/CUMM (3.8-5.5); Red Cell Distribution Width 14.4 % (9.3-17.3); White Blood Count 15.5 T/CUMM (4-12)
[2018-01-24] MEDS ORDERED: VANCOMYCIN 1,000 MG VIAL ONE (04:52)
[2018-01-24 04:56] LABS: Alanine Aminotransferase 23 U/L (13-56); Albumin 2.7 G/DL (3.4-5.0); Alkaline Phosphatase 84 U/L (45-117); Aspartate Amino Transferase 30 U/L (0-37); Bilirubin,Total < 0.39 MG/DL (0.2-1.0); Blood Urea Nitrogen 11 MG/DL (7-18); Glucose 104 MG/DL (74-106); Osmolality,Calculated 281.1 MOS/KG (273-304); Potassium 3.7 MMOL/L (3.5-5.1); Sodium 142 MMOL/L (136-145); Total Protein 7.2 G/DL (6.4-8.3)
[2018-01-24] MEDS ORDERED: ACETAMINOPHEN 325 MG TABLET PO PRN (06:20)
[2018-01-24] MEDS ORDERED: ONDANSETRON 4 MG/2 ML VIAL IV PRN (06:20)
[2018-01-24] MEDS ORDERED: HYDROmorphone 2 MG/1 ML VIAL IV PRN (06:20)
[2018-01-24] MEDS: KETOCONAZOLE 2% CREAM 30 GM TUBE TOP SCH ×2 (08:48→20:57)
[2018-01-24] MEDS: PANTOPRAZOLE 40 MG VIAL IV SCH (08:48)
[2018-01-24] MEDS: SODIUM CHLORIDE 0.9% 1,000 ML IV SCH ×2 (08:49→20:58)
[2018-01-24] MEDS ORDERED: FLUTICASONE PROPIONATE TOP SCH (09:00)
[2018-01-24] MEDS: PIPERACILLIN/TAZOBACTAM 3,375 MG in SODIUM CHLORIDE 0.9% 100 ML IV SCH ×3 (09:36→22:49)
[2018-01-25 03:49] LABS: Apearance,Urine CLEAR (Clear); Bilirubin,Urine Negative (Negative); Blood, Urine Negative (Negative); Glucose,Urine (UA) Negative (Negative); Ketones,Urine Negative (Negative); Nitrite,Urine Negative (Negative); Protein,Urine Negative; RBC,Urine 1 /HPF (0-4); Urine Color Yellow (Yellow); Urine Specific Gravity 1.017 (1.001-1.035); Urine Urobilinogen < 2.0 EU/DL (0.2-1.0); WBC,Urine 31 /HPF (0-6)
[2018-01-25] MEDS: PIPERACILLIN/TAZOBACTAM 3,375 MG in SODIUM CHLORIDE 0.9% 100 ML IV SCH ×3 (06:29→23:12)
[2018-01-25] MEDS: SODIUM CHLORIDE 0.9% 1,000 ML IV SCH ×3 (06:30→23:17)
[2018-01-25 07:23] LABS: Basophils # 0.1 10*3/uL (0.0-0.2); Basophils % 0.6 % (0.0-0.8); Eosinophils # 0.2 10*3/uL (0.0-0.87); Eosinophils % 1.8 % (0.00-10.9); Hematocrit 29.5 VOL% (35.7-47.0); Hemoglobin 9.8 GM/DL (12.0-16.0); Immature Granulocytes % 0.8 %; Immature Granulocytes Absolute 0.08 #; Lymphocytes # 1.9 10*3/uL (1.4-4.0); Lymphocytes % 20.2 % (21.3-54.2); Mean Corpuscular HGB Conc 33.2 GM/DL (32-36); Mean Corpuscular Hemoglobin 29 PG (27-34); Mean Corpuscular Volume 88.3 FL (87-102); Monocytes # 0.6 10*3/uL (0.11-0.8); Monocytes % 5.8 % (1.7-12.7); Neutrophils # 6.7 10*3/uL (1.4-7.4); Neutrophils % 70.8 % (38.7-73.9); Platelet Count 359 T/CUMM (130-400); Red Blood Count 3.34 MC/CUMM (3.8-5.5); Red Cell Distribution Width 14.4 % (9.3-17.3); White Blood Count 9.5 T/CUMM (4-12)
[2018-01-25 08:03] LABS: Albumin 2.8 G/DL (3.4-5.0); Bilirubin,Total 0.5 MG/DL (0.2-1.0); Calcium 8.7 MG/DL (8.5-10.1); Osmolality,Calculated 280.1 MOS/KG (273-304); Potassium 3.7 MMOL/L (3.5-5.1); Total Protein 7.5 G/DL (6.4-8.3)
[2018-01-25] MEDS: PANTOPRAZOLE 40 MG VIAL IV SCH (09:20)
[2018-01-25] MEDS: KETOCONAZOLE 2% CREAM 30 GM TUBE TOP SCH ×2 (09:21→21:55)
[2018-01-25] MEDS: VANCOMYCIN INJ 1,000 MG in SODIUM CHLORIDE 0.9% 250 ML IV SCH ×2 (15:51→16:50)
[2018-01-26] MEDS: VANCOMYCIN INJ 1,000 MG in SODIUM CHLORIDE 0.9% 250 ML IV SCH ×2 (04:12→16:05)
[2018-01-26] MEDS: PIPERACILLIN/TAZOBACTAM 3,375 MG in SODIUM CHLORIDE 0.9% 100 ML IV SCH ×2 (06:04→14:33)
[2018-01-26 06:40] LABS: Basophils # 0.1 10*3/uL (0.0-0.2); Basophils % 0.6 % (0.0-0.8); Eosinophils # 0.3 10*3/uL (0.0-0.87); Hematocrit 31.6 VOL% (35.7-47.0); Hemoglobin 10.4 GM/DL (12.0-16.0); Immature Granulocytes % 0.8 %; Immature Granulocytes Absolute 0.08 #; Lymphocytes # 2.6 10*3/uL (1.4-4.0); Lymphocytes % 26.1 % (21.3-54.2); Mean Corpuscular HGB Conc 32.9 GM/DL (32-36); Mean Corpuscular Hemoglobin 29 PG (27-34); Mean Corpuscular Volume 87.5 FL (87-102); Mean Platelet Volume 10.3 FL (9.6-12.0); Monocytes # 0.6 10*3/uL (0.11-0.8); Monocytes % 6.1 % (1.7-12.7); Neutrophils # 6.4 10*3/uL (1.4-7.4); Neutrophils % 63.4 % (38.7-73.9); Platelet Count 405 T/CUMM (130-400); Red Blood Count 3.61 MC/CUMM (3.8-5.5); Red Cell Distribution Width 14.5 % (9.3-17.3); White Blood Count 10.1 T/CUMM (4-12)
[2018-01-26 07:06] LABS: Calcium 8.9 MG/DL (8.5-10.1); Osmolality,Calculated 277.4 MOS/KG (273-304); Potassium 3.9 MMOL/L (3.5-5.1)
[2018-01-26] MEDS: PANTOPRAZOLE 40 MG VIAL IV SCH (09:09)
[2018-01-26] MEDS: KETOCONAZOLE 2% CREAM 30 GM TUBE TOP SCH ×2 (09:10→21:56)
[2018-01-26] MEDS: SODIUM CHLORIDE 0.9% 1,000 ML IV SCH (14:32)
[2018-01-26] MEDS: AMPICILLIN/SULBACTAM 3,000 MG in SODIUM CHLORIDE 0.9% 100 ML IV SCH (18:18)
[2018-01-26] MEDS: LINEZOLID INJ 600 MG in PREMIX 1 EACH IV SCH (21:56)
[2018-01-27] MEDS: AMPICILLIN/SULBACTAM 3,000 MG in SODIUM CHLORIDE 0.9% 100 ML IV SCH ×4 (00:30→18:06)
[2018-01-27] MEDS: SODIUM CHLORIDE 0.9% 1,000 ML IV SCH (05:33)
[2018-01-27] MEDS: PANTOPRAZOLE 40 MG VIAL IV SCH (08:57)
[2018-01-27] MEDS: KETOCONAZOLE 2% CREAM 30 GM TUBE TOP SCH ×2 (08:58→21:51)
[2018-01-27] MEDS: LINEZOLID INJ 600 MG in PREMIX 1 EACH IV SCH ×2 (10:33→21:51)
[2018-01-28] MEDS: AMPICILLIN/SULBACTAM 3,000 MG in SODIUM CHLORIDE 0.9% 100 ML IV SCH ×2 (00:15→05:51)
[2018-01-28] MEDS ORDERED: PANTOPRAZOLE 40 MG TABLET PO SCH (09:00)
[2018-01-28] MEDS: KETOCONAZOLE 2% CREAM 30 GM TUBE TOP SCH (10:11)
[2018-01-28] MEDS: LINEZOLID INJ 600 MG in PREMIX 1 EACH IV SCH (10:11)
[2018-01-28 11:50] VITALS: BP 168/82
== END 2018-01-28 14:20 | disposition home or self-care (01) | DRG 920 ==
LOC: N.ED 02:43 → N.EDINP 04:58 → N.3E 05:19 → N.5E 05:29
PROVIDERS: ADMIT Surgery; ATTEND Surgery

== ENCOUNTER 2018-12-21 11:07 | Inpatient (IN) ==
[2018-12-21 12:56] LABS: Apearance,Urine CLEAR (Clear); Bilirubin,Urine Negative (Negative); Blood, Urine Negative (Negative); Glucose,Urine (UA) Negative (Negative); Ketones,Urine Negative (Negative); Nitrite,Urine Negative (Negative); Protein,Urine Negative; RBC,Urine 1 /HPF (0-4); Urine Color Yellow (Yellow); Urine Specific Gravity 1.008 (1.001-1.035); Urine Urobilinogen < 2.0 EU/DL (0.2-1.0)
[2018-12-21 15:13] LABS: Basophils % 0.4 % (0.0-0.8); Eosinophils # 0.1 10*3/uL (0.0-0.87); Eosinophils % 0.9 % (0.00-10.9); Hematocrit 37.4 VOL% (35.7-47.0); Hemoglobin 12.1 GM/DL (12.0-16.0); Immature Granulocytes % 0.4 %; Immature Granulocytes Absolute 0.03 #; Lymphocytes % 26.4 % (21.3-54.2); Mean Corpuscular HGB Conc 32.4 GM/DL (32-36); Mean Corpuscular Hemoglobin 29 PG (27-34); Mean Corpuscular Volume 90.3 FL (87-102); Mean Platelet Volume 10.8 FL (9.6-12.0); Monocytes # 0.4 10*3/uL (0.11-0.8); Monocytes % 5.6 % (1.7-12.7); Neutrophils % 66.3 % (38.7-73.9); Platelet Count 266 T/CUMM (130-400); Red Blood Count 4.14 MC/CUMM (3.8-5.5); Red Cell Distribution Width 12.5 % (9.3-17.3); White Blood Count 7.5 T/CUMM (4-12)
[2018-12-21] MEDS ORDERED: ACETAMINOPHEN 325 MG TABLET PO PRN (15:18)
[2018-12-21] MEDS ORDERED: BISACODYL 5 MG TABLET PO PRN (15:18)
[2018-12-21] MEDS ORDERED: MEPERIDINE 50 MG TABLET PO PRN (15:18)
[2018-12-21] MEDS ORDERED: ONDANSETRON 4 MG/2 ML VIAL IV PRN (15:18)
[2018-12-21] MEDS ORDERED: KETOROLAC 10 MG TABLET PO PRN (15:18)
[2018-12-21] MEDS ORDERED: MEPERIDINE 25 MG/1 ML VIAL IV PRN (15:18)
[2018-12-21] MEDS ORDERED: hydrALAZINE 20 MG/1 ML VIAL IV PRN (15:25)
[2018-12-21 15:36] LABS: Albumin 3.7 G/DL (3.4-5.0); Bilirubin,Total 0.5 MG/DL (0.2-1.0); Calcium 9.5 MG/DL (8.5-10.1); Osmolality,Calculated 271.8 MOS/KG (273-304); Potassium 3.6 MMOL/L (3.5-5.1); Total Protein 8.4 G/DL (6.4-8.3)
[2018-12-21 16:30] LABS: Albumin 3.7 G/DL (3.4-5.0); Bilirubin,Direct 0.13 MG/DL (0.0-0.20); Bilirubin,Indirect 0.4 MG/DL (0.0-1.0); Bilirubin,Total 0.5 MG/DL (0.2-1.0); Total Protein 8.5 G/DL (6.4-8.3)
[2018-12-21 17:05] LABS: Cancer Antigen 19-9 121.2 U/ML (0-37); Carcinoembryonic Antigen 0.9 NG/ML (0.0-5.0)
[2018-12-21] MEDS: metroNIDAZOLE INJ 500 MG in PREMIX 1 EACH IV SCH ×2 (17:52→23:34)
[2018-12-21] MEDS: PANTOPRAZOLE 40 MG TABLET PO SCH (17:59)
[2018-12-21] MEDS: PIPERACILLIN/TAZOBACTAM 3,375 MG in SODIUM CHLORIDE 0.9% 100 ML IV SCH (19:01)
[2018-12-21] MEDS: OMEGA 3 ACID ETHYL ESTERS 1 GM CAPSULE PO SCH (20:24)
[2018-12-22] MEDS: PIPERACILLIN/TAZOBACTAM 3,375 MG in SODIUM CHLORIDE 0.9% 100 ML IV SCH ×3 (00:33→17:22)
[2018-12-22 04:27] LABS: Basophils % 0.5 % (0.0-0.8); Eosinophils # 0.2 10*3/uL (0.0-0.87); Eosinophils % 2.5 % (0.00-10.9); Hematocrit 34.4 VOL% (35.7-47.0); Immature Granulocytes % 0.3 %; Immature Granulocytes Absolute 0.02 #; Lymphocytes # 2.2 10*3/uL (1.4-4.0); Mean Corpuscular Hemoglobin 29 PG (27-34); Mean Corpuscular Volume 90.5 FL (87-102); Mean Platelet Volume 10.8 FL (9.6-12.0); Monocytes # 0.5 10*3/uL (0.11-0.8); Monocytes % 8.3 % (1.7-12.7); Neutrophils % 51.4 % (38.7-73.9); Platelet Count 232 T/CUMM (130-400); Red Cell Distribution Width 12.7 % (9.3-17.3); White Blood Count 5.9 T/CUMM (4-12)
[2018-12-22 04:53] LABS: Albumin 3.2 G/DL (3.4-5.0); Bilirubin,Total 1.4 MG/DL (0.2-1.0); Calcium 8.8 MG/DL (8.5-10.1); Osmolality,Calculated 279.3 MOS/KG (273-304); Potassium 3.8 MMOL/L (3.5-5.1); Total Protein 7.3 G/DL (6.4-8.3)
[2018-12-22] MEDS: metroNIDAZOLE INJ 500 MG in PREMIX 1 EACH IV SCH ×3 (07:36→23:36)
[2018-12-22] MEDS: hydroCHLOROthiazide 12.5 MG CAPSULE PO SCH (08:36)
[2018-12-22] MEDS: POLYETHYLENE GLYCOL POWDER 17 GM PACK PO SCH (08:36)
[2018-12-22] MEDS: PANTOPRAZOLE 40 MG TABLET PO SCH (08:36)
[2018-12-22] MEDS ORDERED: LACTATED RINGERS 1,000 ML IV SCH (11:30)
[2018-12-22] MEDS ORDERED: PROPOFOL 200 MG/20 ML VIAL IV ONE (12:52)
[2018-12-22] MEDS ORDERED: MIDAZOLAM 2 MG/2 ML VIAL ONE (12:53)
[2018-12-22] MEDS ORDERED: fentaNYL 100 MCG/2 ML VIAL ONE (12:53)
[2018-12-22] MEDS: PHENAZOPYRIDINE 95 MG TABLET PO SCH (17:22)
[2018-12-22] MEDS: OMEGA 3 ACID ETHYL ESTERS 1 GM CAPSULE PO SCH (20:19)
[2018-12-22] MEDS ORDERED: ESTRADIOL 0.01% VAG CREAM 42.5 GM TUBE VAG SCH (21:00)
[2018-12-23] MEDS: PIPERACILLIN/TAZOBACTAM 3,375 MG in SODIUM CHLORIDE 0.9% 100 ML IV SCH ×2 (00:38→11:45)
[2018-12-23] MEDS: hydroCHLOROthiazide 12.5 MG CAPSULE PO SCH (09:18)
[2018-12-23] MEDS: PHENAZOPYRIDINE 95 MG TABLET PO SCH ×2 (09:18→13:55)
[2018-12-23] MEDS: PANTOPRAZOLE 40 MG TABLET PO SCH (09:18)
[2018-12-23] MEDS: metroNIDAZOLE INJ 500 MG in PREMIX 1 EACH IV SCH (09:19)
[2018-12-23] MEDS: POLYETHYLENE GLYCOL POWDER 17 GM PACK PO SCH (09:19)
[2018-12-23 11:26] VITALS: BP 124/73
== END 2018-12-23 16:10 | disposition home or self-care (01) | DRG 856 ==
LOC: N.ED 11:07 → N.EDINP 15:18 → N.3E 16:27
PROVIDERS: ADMIT Surgery; ATTEND Surgery